=== PATIENT | female | born 1970 | race Caucasian/White ===

== ENCOUNTER → 2018-12-03 06:45 | Outpatient (CLI) | payer BC, SELFPAY ==
--- NOTE | 2018-12-03 | DI.MRI.S_ITS ---
PROCEDURE: MR LUMBAR SPINE WO CON INDICATIONS: Low back pain TECHNIQUE: Noncontrast sagittal T1 spin echo and T2 fast echo, sagittal STIR, axial T1 and T2 fast spin echo through the lumbar spine. In cases with scoliosis, additional coronal T2 fast spin echo may be performed. COMPARISON: None. FINDINGS: Image quality: Excellent. Alignment and Curvature: There is normal bony alignment. Bone Marrow: Marrow is of normal overall signal. No acute vertebral body compression fractures. Spinal Cord: Conus medullaris terminates at the L1-L2 level. Visualized cord demonstrates normal signal and size. Paraspinous Soft Tissues: No paravertebral masses. L1-L2: Normal appearance. L2-L3: Normal appearance. L3-L4: Normal appearance. L4-L5: Preserved disc height. Moderate disc desiccation. There is mild posterior disc bulge. A posterior central annular tear is present. The central canal is patent. No foraminal stenosis. L5-S1: Preserved disc height. Mild disc desiccation. There is diffuse posterior disc bulge and posterior lateral and small posterior central disc protrusion. Superimposed annular tear is present. A posterior central annular tear is present. The central canal is patent. Moderate left and mild right foraminal stenosis. IMPRESSION: 1. Degenerative disc disease at L4-L5 and L5-S1 as described. 2. No central canal stenosis. 3. Moderate left and mild right foraminal stenosis. Dictated by: Keyla Manley M.D. on 12/03/2018 at 9:55 Approved by: Keyla Manley M.D. on 12/03/2018 at 10:05
== END ==
PROVIDERS: PCP Physician Assistant; Visit Provider Psychiatry & Neurology Neurology
DX: M51.36 Other intervertebral disc degeneration, lumbar region (principal); M51.37 Other intervertebral disc degeneration, lumbosacral region; M48.07 Spinal stenosis, lumbosacral region; M54.5 Low back pain; G89.29 Other chronic pain
CPT/HCPCS: 72148

== ENCOUNTER 2019-01-21 07:30 | Outpatient (RCR) | payer BC, SELFPAY ==
--- NOTE | 2018-12-14 13:13 | PT.OIE ---
Current Diagnoses Other chronic pain (12/14/18) Low back pain (12/14/18) Past Surgical History History of bilateral salpingo-oophorectomy (BSO) (09/30/14) Status post delivery Status post laparoscopic cholecystectomy Status post laparoscopic supracervical hysterectomy Status post laparoscopy (05/13/14) Status post laparoscopy (09/18/15) Provider Visit Care Team Role Provider Type Shannon He PA-C Primary Care Provider Advanced Automobile Mechanic Supervisor Specialty: Medical Address: [address] [place] [address], [id number] Email: [email or web address] Other Providers Specialty: Address: Phone: Fax: Email: Surendra Holloway MD Attending Provider Non-Staff Specialty: Psychiatry Address: [address] [place] [address], [id number] Email: Physical Therapy Initial Evaluation PT-OP-A Visit Information Start: 12/14/18 07:26 Freq: Status: Active Protocol: Document 12/14/18 07:30 AMB (Rec: 12/14/18 08:43 AMB [email or web address]) Out-Patient Physical Therapy Visit Information Visit Information Visit Type Initial Evaluation Visit Start Time 07:30 Visit Stop Time 08:00 Total Visit Minutes 45 Visit Number 1 PT-OP-B Current Condition Start: 12/14/18 07:26 Freq: Status: Active Protocol: Document 12/14/18 07:30 AMB (Rec: 12/14/18 07:46 AMB [id number]) Current Condition History of Current Condition Onset Date September 2016 Current Complaints low back pain with numbness in the lower extremities History of Current Condition Brianna has multiple chronic conditions, but attends PT for her low back. 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 Currently she has low back pain with numbness/ tingling R >L in LEs. Standing for extended periods of time ( cooking, showering) increases pain. Touching the lipomas hurts. Heat helps. Currently she is working out in the pool 2x/week doing water walking. 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 Does have multiple children and her at home. Prior Treatments and Tests MRI of lumbar spine 12/03/18: L5-21 moderate foraminal stenosis on the left, mild on the R, mild disc dessication. No central canal stenosis. 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 Current Functional Impairments (Reported) Functional Limitations- ADL's limited to 20 minutes of standing (cooking) at a time, then requires a rest break Personal Factors Other Personal Factors That May Effect Lipedema, fibromyalgia, Dercum Therapy/Recovery 's disease, C-spine fusion C5- 6, 6-7, history of gastric bypass, multiple abdominal laparoscopies and . PT-OP-C Subjective Start: 12/14/18 07:26 Freq: Status: Active Protocol: Document 12/14/18 07:30 AMB (Rec: 12/14/18 08:43 AMB [email or web address]) Patient Questionnaires Oswestry Low Back Index Oswestry Score 58 Oswestry Impairment 40 to 59% Impaired (Score 40- 59) OP-PT Pain Assessment Location Lower Back Intensity 4 Scale Used Numeric (1 - 10) PT-OP-G Mobility & Gait Start: 12/14/18 07:26 Freq: Status: Active Protocol: Document 12/14/18 07:30 AMB (Rec: 12/14/18 12:39 AMB [email or web address]) OP Gait Assessment Comments Gait Comments Pt ambulates with good step length and speed, mildly reduced trunk rotation PT-OP-J Posture/Palpation/Skin Start: 12/14/18 07:26 Freq: Status: Active Protocol: Document 12/14/18 07:30 AMB (Rec: 12/14/18 12:43 AMB [email or web address]) Posture Evaluation Comments Posture Comments increased lumbar lordosis in standing Palpation Assessment Location One Palpation Location lumbar Palpation Details tenderness with palpation throughout body, more tenderness at SI joint than at lumbar spine, although low lumbar is tender more at transverse processes than central. PT-OP-K Range of Motion Start: 12/14/18 07:26 Freq: Status: Active Protocol: Document 12/14/18 07:30 AMB (Rec: 12/14/18 09:05 AMB [email or web address]) Lumbar Spine Range of Motion Lumbar Spine Active Degrees Testing Position Standing Flexion 30 Extension 10 Lateral Flexion Left 10 Lateral Flexion Right 20 ROM Limitations Pain PT-OP-M Strength Start: 12/14/18 07:26 Freq: Status: Active Protocol: Document 12/14/18 07:30 AMB (Rec: 12/14/18 09:05 AMB [email or web address]) Hip Strength Hip Manual Muscle Testing Right Flexion (L2) 3 Fair Abduction 3+ Fair+ Adduction 3 Fair Left Flexion (L2) 3 Fair Extension (S1) 3 Fair Abduction 3 Fair Knee Strength Knee Manual Muscle Testing Right Flexion (S2) 4 Good Extension (L3) 4 Good Left Flexion (S2) 4 Good Extension (L3) 4 Good Ankle/Foot Strength Ankle and Foot Manual Muscle Testing Right Dorsiflexion (L4) 4 Good Plantarflexion (S1) 4 Good Left Dorsiflexion (L4) 4 Good Plantarflexion (S1) 4 Good PT-OP-Q Treatments Start: 12/14/18 07:26 Freq: Status: Active Protocol: Document 12/14/18 07:30 AMB (Rec: 12/14/18 12:39 AMB [email or web address]) Therapeutic Exercises Supine Exercises 3 Supine Exercise Name bent leg fall out Reps/Minutes 2x10 2 Supine Exercise Name supine march Reps/Minutes 2x10 1 Supine Exercise Name trunk rotation PT-OP-T Assessment and Plan Start: 12/14/18 07:26 Freq: Status: Active Protocol: Document 12/14/18 07:30 AMB (Rec: 12/14/18 13:13 AMB [email or web address]) Physical Therapy Assessment Rehab Potential Rehabilitation Potential Good Evaluation Complexity Number of Personal Factors/Comorbidities 3 or More Number of Body Systems Impaired 4 or More Clinical Presentation at Evaluation Evolving Impairments Impairments Functional Activities Pain Posture ROM Sensation Soft Tissue Mobility Strength Goals Three Impairment ROM Short Term Goal (STG) Brianna will increase her active lumbar flexion to 50 degrees. STG Duration 4 weeks Two Impairment activity tolerance Short Term Goal (STG) Brianna will stand to cook for 20 minutes with 2/10 pain or less. STG Duration 4 weeks Mcfp Goal (LTG) Brianna will stand to shower for 10 minutes with 2/10 pain or less. LTG Duration 8 weeks One Impairment strength Short Term Goal (STG) Brianna will be independent with a core and LE strengthening HEP. STG Duration 4 weeks Mcfp Goal (LTG) Brianna will improve her strength so that she can perform a full squat without an increase in baseline pain. LTG Duration 8 weeks Assessment Summary Assessment Brianna attends physical therapy with multiple chronic pain conditions, but this round of PT will be for her low back pain that radiates into her legs. The pain is worst with standing, but can be bad with any extended positioning including sitting. Her core and LE strength was poor bilaterally, and she would benefit from postural retraining so that she can be more successful and less painful with chores around the home. Physical Therapy Plan Frequency and Duration Frequency of Treatment 2x/Week Duration of Treatment 8 weeks Plan of Care Start Date 12/14/18 Plan of Care End Date 02/08/19 Therapeutic Interventions Therapeutic Interventions Aquatic Therapy Home Exercise Program Manual Therapy Neuromuscular Re-education Self-Care/Home Management Therapeutic Activities Therapeutic Exercises Modalities Electric Stimulation Hot Packs Ultrasound Next Visit Focus/Plan Next Note Type Treatment Note Next Visit Plan Recheck SI joint for pain, progress core/hip stabilization exercises, posture/body mechanics training
--- NOTE | 2018-12-14 13:15 | PT.OPPOC ---
Current Diagnoses Other chronic pain (12/14/18) Low back pain (12/14/18) Provider Visit Care Team Role Provider Type Shannon He PA-C Primary Care Provider Advanced Airport Planner Specialty: Medical Address: [facility] [place], [address] Email: [email or web address] Other Providers Specialty: Address: Phone: Fax: Email: Surendra Holloway MD Attending Provider Non-Staff Specialty: Psychiatry Address: [address] [place], [address] Email: Plan Of Care PT-OP-T Assessment and Plan Start: 12/14/18 07:26 Freq: Status: Active Protocol: Document 12/14/18 07:30 AMB (Rec: 12/14/18 13:13 AMB [email or web address]) Physical Therapy Assessment Rehab Potential Rehabilitation Potential Good Evaluation Complexity Number of Personal Factors/Comorbidities 3 or More Number of Body Systems Impaired 4 or More Clinical Presentation at Evaluation Evolving Impairments Impairments Functional Activities Pain Posture ROM Sensation Soft Tissue Mobility Strength Goals Three Impairment ROM Short Term Goal (STG) Brianna will increase her active lumbar flexion to 50 degrees. STG Duration 4 weeks Two Impairment activity tolerance Short Term Goal (STG) Brianan will stand to cook for 20 minutes with 2/10 pain or less. STG Duration 4 weeks Care Transition Manager Goal (LTG) Brianna will stand to shower for 10 minutes with 2/10 pain or less. LTG Duration 8 weeks One Impairment strength Short Term Goal (STG) Brianna will be independent with a core and LE strengthening HEP. STG Duration 4 weeks Care Transition Manager Goal (LTG) Brianna will improve her strength so that she can perform a full squat without an increase in baseline pain. LTG Duration 8 weeks Assessment Summary Assessment Brianna attends physical therapy with multiple chronic pain conditions, but this round of PT will be for her low back pain that radiates into her legs. The pain is worst with standing, but can be bad with any extended positioning including sitting. Her core and LE strength was poor bilaterally, and she would benefit from postural retraining so that she can be more successful and less painful with chores around the home. Physical Therapy Plan Frequency and Duration Frequency of Treatment 2x/Week Duration of Treatment 8 weeks Plan of Care Start Date 12/14/18 Plan of Care End Date 02/08/19 Therapeutic Interventions Therapeutic Interventions Aquatic Therapy Home Exercise Program Manual Therapy Neuromuscular Re-education Self-Care/Home Management Therapeutic Activities Therapeutic Exercises Modalities Electric Stimulation Hot Packs Ultrasound Next Visit Focus/Plan Next Note Type Treatment Note Next Visit Plan Recheck SI joint for pain, progress core/hip stabilization exercises, posture/body mechanics training Plan of Care Dates Plan of Care Start Date 12/14/18 Plan of Care End Date 02/08/19 Please Sign and Return: I have reviewed this Plan of Care and certify that the skilled therapy services above are required to meet the patient?s needs. Physician Signature Date Printed Name and Credentials Clinical Instructor Signature Printed Name and Credentials
--- NOTE | 2018-12-22 13:09 | PT.OTN ---
Current Diagnoses Other chronic pain (12/22/18) Low back pain (12/22/18) Physical Therapy Treatment Note PT-OP-A Visit Information Start: 12/14/18 07:26 Freq: Status: Active Protocol: Document 12/22/18 08:15 AMB (Rec: 12/22/18 08:23 AMB [id number]) Out-Patient Physical Therapy Visit Information Visit Information Visit Type Treatment Note Visit Start Time 08:15 Visit Stop Time 09:00 Total Visit Minutes 45 Visit Number 2 PT-OP-B Current Condition Start: 12/14/18 07:26 Freq: Status: Active Protocol: Document 12/14/18 07:30 AMB (Rec: 12/14/18 07:46 AMB [id number]) Current Condition History of Current Condition Onset Date September 2016 Current Complaints low back pain with numbness in the lower extremities History of Current Condition Brianna has multiple chronic conditions, but attends PT for her low back. 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 Currently she has low back pain with numbness/ tingling R >L in LEs. Standing for extended periods of time ( cooking, showering) increases pain. Touching the lipomas hurts. Heat helps. Currently she is working out in the pool 2x/week doing water walking. 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 Does have multiple children and her at home. Prior Treatments and Tests MRI of lumbar spine 12/03/18: L5-21 moderate foraminal stenosis on the left, mild on the R, mild disc dessication. No central canal stenosis. 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 Current Functional Impairments (Reported) Functional Limitations- ADL's limited to 20 minutes of standing (cooking) at a time, then requires a rest break Personal Factors Other Personal Factors That May Effect Lipedema, fibromyalgia, Dercum Therapy/Recovery 's disease, C-spine fusion C5- 6, 6-7, history of gastric bypass, multiple abdominal laparoscopies and . PT-OP-C Subjective Start: 12/14/18 07:26 Freq: Status: Active Protocol: Document 12/22/18 08:15 AMB (Rec: 12/22/18 08:23 AMB [id number]) OP-PT Subjective Patient Comments Patient Comments Pt states she is in a flare with her neck and arms. PT-OP-G Mobility & Gait Start: 12/14/18 07:26 Freq: Status: Active Protocol: Document 12/14/18 07:30 AMB (Rec: 12/14/18 12:39 AMB [email or web address]) OP Gait Assessment Comments Gait Comments Pt ambulates with good step length and speed, mildly reduced trunk rotation PT-OP-J Posture/Palpation/Skin Start: 12/14/18 07:26 Freq: Status: Active Protocol: Document 12/14/18 07:30 AMB (Rec: 12/14/18 12:43 AMB [email or web address]) Posture Evaluation Comments Posture Comments increased lumbar lordosis in standing Palpation Assessment Location One Palpation Location lumbar Palpation Details tenderness with palpation throughout body, more tenderness at SI joint than at lumbar spine, although low lumbar is tender more at transversus processes than central. PT-OP-K Range of Motion Start: 12/14/18 07:26 Freq: Status: Active Protocol: Document 12/14/18 07:30 AMB (Rec: 12/14/18 09:05 AMB [email or web address]) Lumbar Spine Range of Motion Lumbar Spine Active Degrees Testing Position Standing Flexion 30 Extension 10 Lateral Flexion Left 10 Lateral Flexion Right 20 ROM Limitations Pain PT-OP-M Strength Start: 12/14/18 07:26 Freq: Status: Active Protocol: Document 12/14/18 07:30 AMB (Rec: 12/14/18 09:05 AMB [email or web address]) Hip Strength Hip Manual Muscle Testing Right Flexion (L2) 3 Fair Abduction 3+ Fair+ Adduction 3 Fair Left Flexion (L2) 3 Fair Extension (S1) 3 Fair Abduction 3 Fair Knee Strength Knee Manual Muscle Testing Right Flexion (S2) 4 Good Extension (L3) 4 Good Left Flexion (S2) 4 Good Extension (L3) 4 Good Ankle/Foot Strength Ankle and Foot Manual Muscle Testing Right Dorsiflexion (L4) 4 Good Plantarflexion (S1) 4 Good Left Dorsiflexion (L4) 4 Good Plantarflexion (S1) 4 Good PT-OP-Q Treatments Start: 12/14/18 07:26 Freq: Status: Active Protocol: Document 12/22/18 08:15 AMB (Rec: 12/22/18 08:38 AMB [id number]) Therapeutic Exercises Supine Exercises 5 Supine Exercise Name bridge Reps/Minutes 2x10 Comments small on 55cm ball 4 Supine Exercise Name 55cm ball knee flex/ext Reps/Minutes 2x10 3 Supine Exercise Name bent leg fall out Reps/Minutes 2x10 2 Supine Exercise Name supine march Reps/Minutes 1x10 1 Supine Exercise Name trunk rotation Reps/Minutes x6 Comments with both legs bent to 90 Sidelying Exercises 1 Sidelying Exercise Name clamshell Reps/Minutes 2x7 Standing Exercises 1 Standing Exercise Name partial squat Reps/Minutes 2x10 Comments vc form PT-OP-T Assessment and Plan Start: 12/14/18 07:26 Freq: Status: Active Protocol: Document 12/22/18 08:15 AMB (Rec: 12/22/18 13:06 AMB [email or web address]) Physical Therapy Assessment Assessment Summary Assessment Pt tolerated exercises well, not able to tolerate quadruped at this time due to arm pain. Squat form is improving but will need continued cueing. Physical Therapy Plan Next Visit Focus/Plan Next Note Type Treatment Note Next Visit Plan Progress core stabilization, posture, body mechanics.
--- NOTE | 2018-12-24 09:46 | PT.OTN ---
Current Diagnoses Other chronic pain (12/24/18) Low back pain (12/24/18) Physical Therapy Treatment Note PT-OP-A Visit Information Start: 12/14/18 07:26 Freq: Status: Active Protocol: Document 12/24/18 07:30 AMB (Rec: 12/24/18 07:45 AMB [id number]) Out-Patient Physical Therapy Visit Information Visit Information Visit Type Treatment Note Visit Start Time 07:30 Visit Stop Time 08:15 Total Visit Minutes 45 Visit Number 3 PT-OP-B Current Condition Start: 12/14/18 07:26 Freq: Status: Active Protocol: Document 12/14/18 07:30 AMB (Rec: 12/14/18 07:46 AMB [id number]) Current Condition History of Current Condition Onset Date September 2016 Current Complaints low back pain with numbness in the lower extremities History of Current Condition Brianna has multiple chronic conditions, but attends PT for her low back. 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 Currently she has low back pain with numbness/ tingling R >L in LEs. Standing for extended periods of time ( cooking, showering) increases pain. Touching the lipomas hurts. Heat helps. Currently she is working out in the pool 2x/week doing water walking. 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 Does have multiple children and her at home. Prior Treatments and Tests MRI of lumbar spine 12/03/18: L5-21 moderate foraminal stenosis on the left, mild on the R, mild disc dessication. No central canal stenosis. 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 Current Functional Impairments (Reported) Functional Limitations- ADL's limited to 20 minutes of standing (cooking) at a time, then requires a rest break Personal Factors Other Personal Factors That May Effect Lipedema, fibromyalgia, Dercum Therapy/Recovery 's disease, C-spine fusion C5- 6, 6-7, history of gastric bypass, multiple abdominal laparoscopies and . PT-OP-C Subjective Start: 12/14/18 07:26 Freq: Status: Active Protocol: Document 12/24/18 07:30 AMB (Rec: 12/24/18 07:45 AMB [email or web address]) OP-PT Subjective Patient Comments Patient Comments Pt states her back was painful Christel night. PT-OP-G Mobility & Gait Start: 12/14/18 07:26 Freq: Status: Active Protocol: Document 12/14/18 07:30 AMB (Rec: 12/14/18 12:39 AMB [email or web address]) OP Gait Assessment Comments Gait Comments Pt ambulates with good step length and speed, mildly reduced trunk rotation PT-OP-J Posture/Palpation/Skin Start: 12/14/18 07:26 Freq: Status: Active Protocol: Document 12/14/18 07:30 AMB (Rec: 12/14/18 12:43 AMB [email or web address]) Posture Evaluation Comments Posture Comments increased lumbar lordosis in standing Palpation Assessment Location One Palpation Location lumbar Palpation Details tenderness with palpation throughout body, more tenderness at SI joint than at lumbar spine, although low lumbar is tender more at transversus processes than central. PT-OP-K Range of Motion Start: 12/14/18 07:26 Freq: Status: Active Protocol: Document 12/14/18 07:30 AMB (Rec: 12/14/18 09:05 AMB [email or web address]) Lumbar Spine Range of Motion Lumbar Spine Active Degrees Testing Position Standing Flexion 30 Extension 10 Lateral Flexion Left 10 Lateral Flexion Right 20 ROM Limitations Pain PT-OP-M Strength Start: 12/14/18 07:26 Freq: Status: Active Protocol: Document 12/14/18 07:30 AMB (Rec: 12/14/18 09:05 AMB [email or web address]) Hip Strength Hip Manual Muscle Testing Right Flexion (L2) 3 Fair Abduction 3+ Fair+ Adduction 3 Fair Left Flexion (L2) 3 Fair Extension (S1) 3 Fair Abduction 3 Fair Knee Strength Knee Manual Muscle Testing Right Flexion (S2) 4 Good Extension (L3) 4 Good Left Flexion (S2) 4 Good Extension (L3) 4 Good Ankle/Foot Strength Ankle and Foot Manual Muscle Testing Right Dorsiflexion (L4) 4 Good Plantarflexion (S1) 4 Good Left Dorsiflexion (L4) 4 Good Plantarflexion (S1) 4 Good PT-OP-Q Treatments Start: 12/14/18 07:26 Freq: Status: Active Protocol: Document 12/24/18 07:30 AMB (Rec: 12/24/18 07:52 AMB [id number]) Therapeutic Exercises Supine Exercises 7 Supine Exercise Name roll in/ roll out Resistance #3 t band Reps/Minutes 2x10 5 Supine Exercise Name bridge Reps/Minutes 2x10 Comments small on 55cm ball 3 Supine Exercise Name bent leg fall out Reps/Minutes 2x10 2 Supine Exercise Name supine march Reps/Minutes 1x10 Manual Therapy Treatment Manual Traction long axis Details R Manual Techniques 1 Type MET for post rotation on the R PT-OP-T Assessment and Plan Start: 12/14/18 07:26 Freq: Status: Active Protocol: Document 12/24/18 07:30 AMB (Rec: 12/24/18 09:43 AMB [email or web address]) Physical Therapy Assessment Assessment Summary Assessment Decreased intensity of exercises for Brianna's back pain . Addressed SI. PT has a long history of leg length discrepancy. Can recheck to see if she needs heel lift. Physical Therapy Plan Next Visit Focus/Plan Next Note Type Treatment Note Next Visit Plan Progress core stabilization, posture, body mechanics.
--- NOTE | 2018-12-31 11:54 | PT.OTN ---
Current Diagnoses Other chronic pain (12/31/18) Low back pain (12/31/18) Physical Therapy Treatment Note PT-OP-A Visit Information Start: 12/14/18 07:26 Freq: Status: Active Protocol: Document 12/31/18 07:30 BS (Rec: 12/31/18 08:54 BS [email or web address]) Out-Patient Physical Therapy Visit Information Visit Information Visit Type Treatment Note Visit Start Time 07:33 Visit Stop Time 08:15 Visit Number 4 PT-OP-B Current Condition Start: 12/14/18 07:26 Freq: Status: Active Protocol: Document 12/14/18 07:30 AMB (Rec: 12/14/18 07:46 AMB [id number]) Current Condition History of Current Condition Onset Date September 2016 Current Complaints low back pain with numbness in the lower extremities History of Current Condition Brianna has multiple chronic conditions, but attends PT for her low back. 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 Currently she has low back pain with numbness/ tingling R >L in LEs. Standing for extended periods of time ( cooking, showering) increases pain. Touching the lipomas hurts. Heat helps. Currently she is working out in the pool 2x/week doing water walking. 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 Does have multiple children and her at home. Prior Treatments and Tests MRI of lumbar spine 12/03/18: L5-21 moderate foraminal stenosis on the left, mild on the R, mild disc dessication. No central canal stenosis. 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 Current Functional Impairments (Reported) Functional Limitations- ADL's limited to 20 minutes of standing (cooking) at a time, then requires a rest break Personal Factors Other Personal Factors That May Effect Lipedema, fibromyalgia, Dercum Therapy/Recovery 's disease, C-spine fusion C5- 6, 6-7, history of gastric bypass, multiple abdominal laparoscopies and . PT-OP-C Subjective Start: 12/14/18 07:26 Freq: Status: Active Protocol: Document 12/31/18 07:30 BS (Rec: 12/31/18 08:54 BS [email or web address]) OP-PT Subjective Patient Comments Patient Comments Pt reports decreased frequency of numbness in B feet. Has been able to make bath bombs and go to pool to workout. PT-OP-G Mobility & Gait Start: 12/14/18 07:26 Freq: Status: Active Protocol: Document 12/14/18 07:30 AMB (Rec: 12/14/18 12:39 AMB [email or web address]) OP Gait Assessment Comments Gait Comments Pt ambulates with good step length and speed, mildly reduced trunk rotation PT-OP-J Posture/Palpation/Skin Start: 12/14/18 07:26 Freq: Status: Active Protocol: Document 12/14/18 07:30 AMB (Rec: 12/14/18 12:43 AMB [email or web address]) Posture Evaluation Comments Posture Comments increased lumbar lordosis in standing Palpation Assessment Location One Palpation Location lumbar Palpation Details tenderness with palpation throughout body, more tenderness at SI joint than at lumbar spine, although low lumbar is tender more at transversus processes than central. PT-OP-K Range of Motion Start: 12/14/18 07:26 Freq: Status: Active Protocol: Document 12/14/18 07:30 AMB (Rec: 12/14/18 09:05 AMB [email or web address]) Lumbar Spine Range of Motion Lumbar Spine Active Degrees Testing Position Standing Flexion 30 Extension 10 Lateral Flexion Left 10 Lateral Flexion Right 20 ROM Limitations Pain PT-OP-M Strength Start: 12/14/18 07:26 Freq: Status: Active Protocol: Document 12/14/18 07:30 AMB (Rec: 12/14/18 09:05 AMB [email or web address]) Hip Strength Hip Manual Muscle Testing Right Flexion (L2) 3 Fair Abduction 3+ Fair+ Adduction 3 Fair Left Flexion (L2) 3 Fair Extension (S1) 3 Fair Abduction 3 Fair Knee Strength Knee Manual Muscle Testing Right Flexion (S2) 4 Good Extension (L3) 4 Good Left Flexion (S2) 4 Good Extension (L3) 4 Good Ankle/Foot Strength Ankle and Foot Manual Muscle Testing Right Dorsiflexion (L4) 4 Good Plantarflexion (S1) 4 Good Left Dorsiflexion (L4) 4 Good Plantarflexion (S1) 4 Good PT-OP-Q Treatments Start: 12/14/18 07:26 Freq: Status: Active Protocol: Document 12/31/18 07:30 BS (Rec: 12/31/18 08:54 BS [email or web address]) Therapeutic Exercises Supine Exercises 7 Supine Exercise Name roll in/ roll out Resistance #3 t band Reps/Minutes 2x10 5 Supine Exercise Name bridge Reps/Minutes 2x10 Comments small on 55cm ball 3 Supine Exercise Name bent leg fall out Reps/Minutes 2x10 Standing Exercises 2 Standing Exercise Name Standing Paloff press/B UE TB press out Resistance #1 band Reps/Minutes x10 each Comments standing TB pressout, 80 deg shoulder flex 1 Standing Exercise Name Mini squat Reps/Minutes x10 Comments increased LBP, 2nd set held Manual Therapy Treatment Manual Techniques 1 Type MET for post rotation on the R Comments modified in sitting PT-OP-T Assessment and Plan Start: 12/14/18 07:26 Freq: Status: Active Protocol: Document 12/31/18 07:30 BS (Rec: 12/31/18 08:54 BS [email or web address]) Physical Therapy Assessment Assessment Summary Assessment Brianna reports decreased frequency of numbness in B feet, with intermittent LBP throughout the day. Pt demo'd increased activity tolerance with core stabilization exercises. Slight leg leg discrepancy today with R post rotation, MET peformed. Physical Therapy Plan Next Visit Focus/Plan Next Note Type Treatment Note Next Visit Plan Progression of core stabilization exercises in supine and addition of standing/functional exercise with TA contraction.
--- NOTE | 2019-01-05 14:30 | PT.OTN ---
Current Diagnoses Other chronic pain (01/05/19) Low back pain (01/05/19) Physical Therapy Treatment Note PT-OP-A Visit Information Start: 12/14/18 07:26 Freq: Status: Active Protocol: Document 01/05/19 08:43 BS (Rec: 01/05/19 08:46 BS [id number]) Out-Patient Physical Therapy Visit Information Visit Information Visit Type Treatment Note Visit Start Time 08:15 Visit Stop Time 09:00 Visit Number 5 PT-OP-B Current Condition Start: 12/14/18 07:26 Freq: Status: Active Protocol: Document 12/14/18 07:30 AMB (Rec: 12/14/18 07:46 AMB [id number]) Current Condition History of Current Condition Onset Date September 2016 Current Complaints low back pain with numbness in the lower extremities History of Current Condition Brianna has multiple chronic conditions, but attends PT for her low back. 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 Currently she has low back pain with numbness/ tingling R >L in LEs. Standing for extended periods of time ( cooking, showering) increases pain. Touching the lipomas hurts. Heat helps. Currently she is working out in the pool 2x/week doing water walking. 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 Does have multiple children and her at home. Prior Treatments and Tests MRI of lumbar spine 12/03/18: L5-21 moderate foraminal stenosis on the left, mild on the R, mild disc dessication. No central canal stenosis. 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 Current Functional Impairments (Reported) Functional Limitations- ADL's limited to 20 minutes of standing (cooking) at a time, then requires a rest break Personal Factors Other Personal Factors That May Effect Lipedema, fibromyalgia, Dercum Therapy/Recovery 's disease, C-spine fusion C5- 6, 6-7, history of gastric bypass, multiple abdominal laparoscopies and . PT-OP-C Subjective Start: 12/14/18 07:26 Freq: Status: Active Protocol: Document 01/05/19 08:43 BS (Rec: 01/05/19 08:46 BS [id number]) OP-PT Subjective Patient Comments Patient Comments Pt reports that she was able to help her move furniture this weekend and vaccuum without pain. Continues to report that her aquatic exercises make her feel really good. She states she has has some R foot numbness since last session. PT-OP-G Mobility & Gait Start: 12/14/18 07:26 Freq: Status: Active Protocol: Document 12/14/18 07:30 AMB (Rec: 12/14/18 12:39 AMB [email or web address]) OP Gait Assessment Comments Gait Comments Pt ambulates with good step length and speed, mildly reduced trunk rotation PT-OP-J Posture/Palpation/Skin Start: 12/14/18 07:26 Freq: Status: Active Protocol: Document 12/14/18 07:30 AMB (Rec: 12/14/18 12:43 AMB [email or web address]) Posture Evaluation Comments Posture Comments increased lumbar lordosis in standing Palpation Assessment Location One Palpation Location lumbar Palpation Details tenderness with palpation throughout body, more tenderness at SI joint than at lumbar spine, although low lumbar is tender more at transversus processes than central. PT-OP-K Range of Motion Start: 12/14/18 07:26 Freq: Status: Active Protocol: Document 12/14/18 07:30 AMB (Rec: 12/14/18 09:05 AMB [email or web address]) Lumbar Spine Range of Motion Lumbar Spine Active Degrees Testing Position Standing Flexion 30 Extension 10 Lateral Flexion Left 10 Lateral Flexion Right 20 ROM Limitations Pain PT-OP-M Strength Start: 12/14/18 07:26 Freq: Status: Active Protocol: Document 12/14/18 07:30 AMB (Rec: 12/14/18 09:05 AMB [email or web address]) Hip Strength Hip Manual Muscle Testing Right Flexion (L2) 3 Fair Abduction 3+ Fair+ Adduction 3 Fair Left Flexion (L2) 3 Fair Extension (S1) 3 Fair Abduction 3 Fair Knee Strength Knee Manual Muscle Testing Right Flexion (S2) 4 Good Extension (L3) 4 Good Left Flexion (S2) 4 Good Extension (L3) 4 Good Ankle/Foot Strength Ankle and Foot Manual Muscle Testing Right Dorsiflexion (L4) 4 Good Plantarflexion (S1) 4 Good Left Dorsiflexion (L4) 4 Good Plantarflexion (S1) 4 Good PT-OP-Q Treatments Start: 12/14/18 07:26 Freq: Status: Active Protocol: Document 01/05/19 08:43 BS (Rec: 01/05/19 08:46 BS [id number]) Gym Equipment Therapeutic Ball 3 Exercise Details Pelvic clock: CW,CCW Ball Size/Color 65cm Body Position Sitting Reps/Duration x20 each direction 2 Exercise Details LAQs Ball Size/Color 65cm Body Position Sitting Reps/Duration 2x10 1 Exercise Details Alternating Marches + TA bracing Ball Size/Color 65 cm Body Position Sitting Reps/Duration 2x10 Comments Pt tolerated ball exercises better than in supine. Therapeutic Exercises Supine Exercises 6 Supine Exercise Name Single knee to chest Side bilateral Reps/Minutes x5 each Comments attempted double knee to chest . Increased LBP. 7 Supine Exercise Name roll in/ roll out Resistance no band today Reps/Minutes 2x10 5 Supine Exercise Name bridge Reps/Minutes 2x10 3 Supine Exercise Name bent knee fall out Reps/Minutes 2x12 1 Supine Exercise Name lower trunk rotation Reps/Minutes x15 each way Comments hooklying Standing Exercises 2 Standing Exercise Name Standing Paloff press/B UE TB press out Resistance #1 band Reps/Minutes 2x10 each Comments standing TB pressout, 80 deg shoulder flex 1 Standing Exercise Name Mini squat Reps/Minutes x10 PT-OP-T Assessment and Plan Start: 12/14/18 07:26 Freq: Status: Active Protocol: Document 01/05/19 08:43 BS (Rec: 01/05/19 10:40 BS [id number]) Physical Therapy Assessment Assessment Summary Assessment Venita continues to report inconsistent and intermittent B low back/hip/buttock pain. 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 Physical Therapy Plan Next Visit Focus/Plan Next Note Type Treatment Note Next Visit Plan Continue to progress core stabilization exercises. Pt tolerates sitting ball exercises as compared to supine position.
--- NOTE | 2019-01-07 15:56 | PT.OTN ---
Current Diagnoses Other chronic pain (01/07/19) Low back pain (01/07/19) Physical Therapy Treatment Note PT-OP-A Visit Information Start: 12/14/18 07:26 Freq: Status: Active Protocol: Document 01/07/19 07:26 BS (Rec: 01/07/19 07:30 BS [id number]) Out-Patient Physical Therapy Visit Information Visit Information Visit Type Treatment Note Visit Start Time 07:30 Visit Stop Time 08:15 Visit Number 6 PT-OP-B Current Condition Start: 12/14/18 07:26 Freq: Status: Active Protocol: Document 12/14/18 07:30 AMB (Rec: 12/14/18 07:46 AMB [id number]) Current Condition History of Current Condition Onset Date September 2016 Current Complaints low back pain with numbness in the lower extremities History of Current Condition Brianna has multiple chronic conditions, but attends PT for her low back. 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 Currently she has low back pain with numbness/ tingling R >L in LEs. Standing for extended periods of time ( cooking, showering) increases pain. Touching the lipomas hurts. Heat helps. Currently she is working out in the pool 2x/week doing water walking. 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 Does have multiple children and her at home. Prior Treatments and Tests MRI of lumbar spine 12/03/18: L5-21 moderate foraminal stenosis on the left, mild on the R, mild disc dessication. No central canal stenosis. 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 Current Functional Impairments (Reported) Functional Limitations- ADL's limited to 20 minutes of standing (cooking) at a time, then requires a rest break Personal Factors Other Personal Factors That May Effect Lipedema, fibromyalgia, Dercum Therapy/Recovery 's disease, C-spine fusion C5- 6, 6-7, history of gastric bypass, multiple abdominal laparoscopies and . PT-OP-C Subjective Start: 12/14/18 07:26 Freq: Status: Active Protocol: Document 01/07/19 07:26 BS (Rec: 01/07/19 07:30 BS [id number]) OP-PT Subjective Patient Comments Patient Comments Pt states that she is in a lot of pain today, 6/10. She thinks stress has contributed to this flare up. PT-OP-G Mobility & Gait Start: 12/14/18 07:26 Freq: Status: Active Protocol: Document 12/14/18 07:30 AMB (Rec: 12/14/18 12:39 AMB [email or web address]) OP Gait Assessment Comments Gait Comments Pt ambulates with good step length and speed, mildly reduced trunk rotation PT-OP-J Posture/Palpation/Skin Start: 12/14/18 07:26 Freq: Status: Active Protocol: Document 12/14/18 07:30 AMB (Rec: 12/14/18 12:43 AMB [email or web address]) Posture Evaluation Comments Posture Comments increased lumbar lordosis in standing Palpation Assessment Location One Palpation Location lumbar Palpation Details tenderness with palpation throughout body, more tenderness at SI joint than at lumbar spine, although low lumbar is tender more at transversus processes than central. PT-OP-K Range of Motion Start: 12/14/18 07:26 Freq: Status: Active Protocol: Document 12/14/18 07:30 AMB (Rec: 12/14/18 09:05 AMB [email or web address]) Lumbar Spine Range of Motion Lumbar Spine Active Degrees Testing Position Standing Flexion 30 Extension 10 Lateral Flexion Left 10 Lateral Flexion Right 20 ROM Limitations Pain PT-OP-M Strength Start: 12/14/18 07:26 Freq: Status: Active Protocol: Document 12/14/18 07:30 AMB (Rec: 12/14/18 09:05 AMB [email or web address]) Hip Strength Hip Manual Muscle Testing Right Flexion (L2) 3 Fair Abduction 3+ Fair+ Adduction 3 Fair Left Flexion (L2) 3 Fair Extension (S1) 3 Fair Abduction 3 Fair Knee Strength Knee Manual Muscle Testing Right Flexion (S2) 4 Good Extension (L3) 4 Good Left Flexion (S2) 4 Good Extension (L3) 4 Good Ankle/Foot Strength Ankle and Foot Manual Muscle Testing Right Dorsiflexion (L4) 4 Good Plantarflexion (S1) 4 Good Left Dorsiflexion (L4) 4 Good Plantarflexion (S1) 4 Good PT-OP-Q Treatments Start: 12/14/18 07:26 Freq: Status: Active Protocol: Document 01/07/19 07:26 BS (Rec: 01/07/19 07:30 BS [id number]) Gym Equipment Therapeutic Ball 4 Exercise Details Roll in/out Ball Size/Color 65 cm Body Position Sitting Reps/Duration x20 each Comments foam roller for add squeeze. # 1 band for abduction 3 Exercise Details pelvic clock: CW, CCW Ball Size/Color 65cm ball Body Position Sitting Reps/Duration 2 min each 2 Exercise Details LAQs Ball Size/Color 65cm Body Position Sitting Reps/Duration 2x10 1 Exercise Details Alternating Marches + TA bracing Ball Size/Color 65 cm Body Position Sitting Reps/Duration 2x10 Comments Pt tolerated ball exercises better than in supine. Manual Therapy Treatment Soft Tissue Mobilization 1 Body Location L glut med/min Mobilization Type Myofascial Release Rolling Sustained Pressure Intensity/Depth Moderate Body Position R sidelying Comments with foam roller Manual Techniques 1 Type MET for post rotation on the R Comments shotgun technique, 3x5 hold PT-OP-T Assessment and Plan Start: 12/14/18 07:26 Freq: Status: Active Protocol: Document 01/07/19 07:26 BS (Rec: 01/07/19 07:30 BS [id number]) Physical Therapy Assessment Assessment Summary Assessment PT session focused on light lumbar mobility and core stabilization due to recent flare up with increased stress levels. Discussed importance of stress management with pt as she credits stress for her most recent exacerbation. Physical Therapy Plan Next Visit Focus/Plan Next Note Type Treatment Note Next Visit Plan Monitor exacerbation of LBP nad L buttock. Pt tolerates sitting [place]in[place] ball core stabilization best. Progress lumbar stabilization exercises as able.
--- NOTE | 2019-01-11 11:45 | PT.OTN ---
Current Diagnoses Other chronic pain (01/11/19) Low back pain (01/11/19) Physical Therapy Treatment Note PT-OP-A Visit Information Start: 12/14/18 07:26 Freq: Status: Active Protocol: Document 01/11/19 08:00 BS (Rec: 01/11/19 07:44 BS [id number]) Out-Patient Physical Therapy Visit Information Visit Information Visit Type Treatment Note Visit Start Time 07:35 Visit Stop Time 08:13 Visit Number 7 PT-OP-B Current Condition Start: 12/14/18 07:26 Freq: Status: Active Protocol: Document 12/14/18 07:30 AMB (Rec: 12/14/18 07:46 AMB [id number]) Current Condition History of Current Condition Onset Date September 2016 Current Complaints low back pain with numbness in the lower extremities History of Current Condition Brianna has multiple chronic conditions, but attends PT for her low back. 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 Currently she has low back pain with numbness/ tingling R >L in LEs. Standing for extended periods of time ( cooking, showering) increases pain. Touching the lipomas hurts. Heat helps. Currently she is working out in the pool 2x/week doing water walking. 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 Does have multiple children and her at home. Prior Treatments and Tests MRI of lumbar spine 12/03/18: L5-21 moderate foraminal stenosis on the left, mild on the R, mild disc dessication. No central canal stenosis. 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 Current Functional Impairments (Reported) Functional Limitations- ADL's limited to 20 minutes of standing (cooking) at a time, then requires a rest break Personal Factors Other Personal Factors That May Effect Lipedema, fibromyalgia, Dercum Therapy/Recovery 's disease, C-spine fusion C5- 6, 6-7, history of gastric bypass, multiple abdominal laparoscopies and . PT-OP-C Subjective Start: 12/14/18 07:26 Freq: Status: Active Protocol: Document 01/11/19 08:00 BS (Rec: 01/11/19 07:58 BS [id number]) OP-PT Subjective Patient Comments Patient Comments Pt states that she is feeling better, rested more yesterday. She reports that she is able to stand for longer periods of time. PT-OP-G Mobility & Gait Start: 12/14/18 07:26 Freq: Status: Active Protocol: Document 12/14/18 07:30 AMB (Rec: 12/14/18 12:39 AMB [email or web address]) OP Gait Assessment Comments Gait Comments Pt ambulates with good step length and speed, mildly reduced trunk rotation PT-OP-J Posture/Palpation/Skin Start: 12/14/18 07:26 Freq: Status: Active Protocol: Document 12/14/18 07:30 AMB (Rec: 12/14/18 12:43 AMB [email or web address]) Posture Evaluation Comments Posture Comments increased lumbar lordosis in standing Palpation Assessment Location One Palpation Location lumbar Palpation Details tenderness with palpation throughout body, more tenderness at SI joint than at lumbar spine, although low lumbar is tender more at transversus processes than central. PT-OP-K Range of Motion Start: 12/14/18 07:26 Freq: Status: Active Protocol: Document 12/14/18 07:30 AMB (Rec: 12/14/18 09:05 AMB [email or web address]) Lumbar Spine Range of Motion Lumbar Spine Active Degrees Testing Position Standing Flexion 30 Extension 10 Lateral Flexion Left 10 Lateral Flexion Right 20 ROM Limitations Pain PT-OP-M Strength Start: 12/14/18 07:26 Freq: Status: Active Protocol: Document 12/14/18 07:30 AMB (Rec: 12/14/18 09:05 AMB [email or web address]) Hip Strength Hip Manual Muscle Testing Right Flexion (L2) 3 Fair Abduction 3+ Fair+ Adduction 3 Fair Left Flexion (L2) 3 Fair Extension (S1) 3 Fair Abduction 3 Fair Knee Strength Knee Manual Muscle Testing Right Flexion (S2) 4 Good Extension (L3) 4 Good Left Flexion (S2) 4 Good Extension (L3) 4 Good Ankle/Foot Strength Ankle and Foot Manual Muscle Testing Right Dorsiflexion (L4) 4 Good Plantarflexion (S1) 4 Good Left Dorsiflexion (L4) 4 Good Plantarflexion (S1) 4 Good PT-OP-Q Treatments Start: 12/14/18 07:26 Freq: Status: Active Protocol: Document 01/11/19 08:00 BS (Rec: 01/11/19 07:44 BS [id number]) Gym Equipment Therapeutic Ball 4 Exercise Details Roll in/out Ball Size/Color 65 cm Body Position Sitting Reps/Duration x20 each Comments foam roller for add squeeze. # 1 band for abduction 3 Exercise Details pelvic clock: CW, CCW Ball Size/Color 65cm ball Body Position Sitting Reps/Duration 2 min each 2 Exercise Details LAQs Ball Size/Color 65cm Body Position Sitting Reps/Duration 2x10 1 Exercise Details Alternating Marches + TA bracing Ball Size/Color 65 cm Body Position Sitting Reps/Duration 2x10 Comments Pt tolerated ball exercises better than in supine. Therapeutic Exercises Supine Exercises 5 Supine Exercise Name bridge Resistance hooklying Reps/Minutes 2x10 Comments 1 set with 65 cm ball Standing Exercises 2 Standing Exercise Name Standing Paloff press/B UE TB press out Resistance #1 band Reps/Minutes 2x10 each Comments standing TB pressout, 80 deg shoulder flex 1 Standing Exercise Name Mini squat Reps/Minutes x10 Comments B UE support on bars PT-OP-T Assessment and Plan Start: 12/14/18 07:26 Freq: Status: Active Protocol: Document 01/11/19 08:00 BS (Rec: 01/11/19 07:44 BS [id number]) Physical Therapy Assessment Assessment Summary Assessment Pt tolerated core stabilization exercises on [place] ball today and reports she feels like she is making progress in regards to reducing LBP. Assessed trunk AROM, all without increase LBP and WFL with the exception of R rotation. Physical Therapy Plan Next Visit Focus/Plan Next Note Type Treatment Note Next Visit Plan Continue core stabilization exercises and progress toward pt independence with HEP. Incorporate exercises into pool.
--- NOTE | 2019-01-19 12:52 | PT.OTN ---
Current Diagnoses Other chronic pain (01/19/19) Low back pain (01/19/19) Physical Therapy Treatment Note PT-OP-A Visit Information Start: 12/14/18 07:26 Freq: Status: Active Protocol: Document 01/19/19 07:34 BS (Rec: 01/19/19 07:41 BS [id number]) Out-Patient Physical Therapy Visit Information Visit Information Visit Type Treatment Note Visit Start Time 07:30 Visit Stop Time 08:15 Total Visit Minutes 45 Visit Number 8 PT-OP-B Current Condition Start: 12/14/18 07:26 Freq: Status: Active Protocol: Document 12/14/18 07:30 AMB (Rec: 12/14/18 07:46 AMB [id number]) Current Condition History of Current Condition Onset Date September 2016 Current Complaints low back pain with numbness in the lower extremities History of Current Condition Brianna has multiple chronic conditions, but attends PT for her low back. 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 Currently she has low back pain with numbness/ tingling R >L in LEs. Standing for extended periods of time ( cooking, showering) increases pain. Touching the lipomas hurts. Heat helps. Currently she is working out in the pool 2x/week doing water walking. 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 Does have multiple children and her at home. Prior Treatments and Tests MRI of lumbar spine 12/03/18: L5-21 moderate foraminal stenosis on the left, mild on the R, mild disc dessication. No central canal stenosis. 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 Current Functional Impairments (Reported) Functional Limitations- ADL's limited to 20 minutes of standing (cooking) at a time, then requires a rest break Personal Factors Other Personal Factors That May Effect Lipedema, fibromyalgia, Dercum Therapy/Recovery 's disease, C-spine fusion C5- 6, 6-7, history of gastric bypass, multiple abdominal laparoscopies and . PT-OP-C Subjective Start: 12/14/18 07:26 Freq: Status: Active Protocol: Document 01/19/19 07:34 BS (Rec: 01/19/19 07:41 BS [id number]) OP-PT Subjective Patient Comments Patient Comments Pt states that her back feels good today but that her neck and shoulders are sore after housework and attempting to make jewelry with jordan. PT-OP-G Mobility & Gait Start: 12/14/18 07:26 Freq: Status: Active Protocol: Document 12/14/18 07:30 AMB (Rec: 12/14/18 12:39 AMB [email or web address]) OP Gait Assessment Comments Gait Comments Pt ambulates with good step length and speed, mildly reduced trunk rotation PT-OP-J Posture/Palpation/Skin Start: 12/14/18 07:26 Freq: Status: Active Protocol: Document 12/14/18 07:30 AMB (Rec: 12/14/18 12:43 AMB [email or web address]) Posture Evaluation Comments Posture Comments increased lumbar lordosis in standing Palpation Assessment Location One Palpation Location lumbar Palpation Details tenderness with palpation throughout body, more tenderness at SI joint than at lumbar spine, although low lumbar is tender more at transversus processes than central. PT-OP-K Range of Motion Start: 12/14/18 07:26 Freq: Status: Active Protocol: Document 12/14/18 07:30 AMB (Rec: 12/14/18 09:05 AMB [email or web address]) Lumbar Spine Range of Motion Lumbar Spine Active Degrees Testing Position Standing Flexion 30 Extension 10 Lateral Flexion Left 10 Lateral Flexion Right 20 ROM Limitations Pain PT-OP-M Strength Start: 12/14/18 07:26 Freq: Status: Active Protocol: Document 12/14/18 07:30 AMB (Rec: 12/14/18 09:05 AMB [email or web address]) Hip Strength Hip Manual Muscle Testing Right Flexion (L2) 3 Fair Abduction 3+ Fair+ Adduction 3 Fair Left Flexion (L2) 3 Fair Extension (S1) 3 Fair Abduction 3 Fair Knee Strength Knee Manual Muscle Testing Right Flexion (S2) 4 Good Extension (L3) 4 Good Left Flexion (S2) 4 Good Extension (L3) 4 Good Ankle/Foot Strength Ankle and Foot Manual Muscle Testing Right Dorsiflexion (L4) 4 Good Plantarflexion (S1) 4 Good Left Dorsiflexion (L4) 4 Good Plantarflexion (S1) 4 Good PT-OP-Q Treatments Start: 12/14/18 07:26 Freq: Status: Active Protocol: Document 01/19/19 07:34 BS (Rec: 01/19/19 07:41 BS [id number]) Gym Equipment Therapeutic Ball 4 Exercise Details Roll in/out Ball Size/Color 65 cm Body Position Sitting Reps/Duration x20 each Comments foam roller for add squeeze. # 4 band for abduction 3 Exercise Details pelvic clock: CW, CCW Ball Size/Color 65cm ball Body Position Sitting Reps/Duration 3 min each 2 Exercise Details LAQs Ball Size/Color 65cm Body Position Sitting Reps/Duration x20 each 1 Exercise Details Alternating Marches + TA bracing Ball Size/Color 65 cm Body Position Sitting Reps/Duration x20 each LE Therapeutic Exercises Supine Exercises 5 Supine Exercise Name bridge Resistance hooklying Reps/Minutes x20 4 Supine Exercise Name TA brace + scissor kicks Side bilateral Reps/Minutes x10 Standing Exercises 5 Standing Exercise Name Hip abduction Side bilateral Reps/Minutes 2x10 each Comments VCs TA contraction 4 Standing Exercise Name alternating arms Reps/Minutes x15 each Comments VCs TA contraction 3 Standing Exercise Name D2 extension with TA brace Resistance #1 tband Reps/Minutes x10 each side Comments VCs TA contraction 2 Standing Exercise Name Standing Paloff press/B UE TB press out Resistance #1 band Reps/Minutes 2x10 each Comments standing TB pressout, 80 deg shoulder flex PT-OP-T Assessment and Plan Start: 12/14/18 07:26 Freq: Status: Active Protocol: Document 01/19/19 07:34 BS (Rec: 01/19/19 11:48 BS [email or web address]) Physical Therapy Assessment Assessment Summary Assessment Pt tolerated core stabilization exercises today without LBP. No manual therapy performed. Physical Therapy Plan Next Visit Focus/Plan Next Note Type Discharge Summary Next Visit Plan Discharge pt with ideas for exercises to continue in the pool.
--- NOTE | 2019-01-21 09:41 | PT.OTN ---
Current Diagnoses Other chronic pain (01/21/19) Low back pain (01/21/19) Physical Therapy Treatment Note PT-OP-A Visit Information Start: 12/14/18 07:26 Freq: Status: Active Protocol: Document 01/21/19 08:15 BS (Rec: 01/21/19 09:26 BS [email or web address]) Out-Patient Physical Therapy Visit Information Visit Information Visit Type Discharge Summary Visit Start Time 07:35 Visit Stop Time 08:15 Total Visit Minutes 40 Visit Number 9 PT-OP-B Current Condition Start: 12/14/18 07:26 Freq: Status: Active Protocol: Document 12/14/18 07:30 AMB (Rec: 12/14/18 07:46 AMB [id number]) Current Condition History of Current Condition Onset Date September 2016 Current Complaints low back pain with numbness in the lower extremities History of Current Condition Brianna has multiple chronic conditions, but attends PT for her low back. 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 Currently she has low back pain with numbness/ tingling R >L in LEs. Standing for extended periods of time ( cooking, showering) increases pain. Touching the lipomas hurts. Heat helps. Currently she is working out in the pool 2x/week doing water walking. 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 Does have multiple children and her at home. Prior Treatments and Tests MRI of lumbar spine 12/03/18: L5-21 moderate foraminal stenosis on the left, mild on the R, mild disc dessication. No central canal stenosis. 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 Current Functional Impairments (Reported) Functional Limitations- ADL's limited to 20 minutes of standing (cooking) at a time, then requires a rest break Personal Factors Other Personal Factors That May Effect Lipedema, fibromyalgia, Dercum Therapy/Recovery 's disease, C-spine fusion C5- 6, 6-7, history of gastric bypass, multiple abdominal laparoscopies and . PT-OP-C Subjective Start: 12/14/18 07:26 Freq: Status: Active Protocol: Document 01/21/19 08:15 BS (Rec: 01/21/19 07:40 BS [id number]) OP-PT Subjective Patient Comments Patient Comments Pt states that her back hasn't really bothered her as much and that she sees improvement with performing daily activities and housework with minimal low back pain. Patient Reported Progress Improving Patient Questionnaires Oswestry Low Back Index Oswestry Score 32 Oswestry Impairment 20 to 39% Impaired (Score 20- 39) PT-OP-G Mobility & Gait Start: 12/14/18 07:26 Freq: Status: Active Protocol: Document 12/14/18 07:30 AMB (Rec: 12/14/18 12:39 AMB [email or web address]) OP Gait Assessment Comments Gait Comments Pt ambulates with good step length and speed, mildly reduced trunk rotation PT-OP-J Posture/Palpation/Skin Start: 12/14/18 07:26 Freq: Status: Active Protocol: Document 12/14/18 07:30 AMB (Rec: 12/14/18 12:43 AMB [email or web address]) Posture Evaluation Comments Posture Comments increased lumbar lordosis in standing Palpation Assessment Location One Palpation Location lumbar Palpation Details tenderness with palpation throughout body, more tenderness at SI joint than at lumbar spine, although low lumbar is tender more at transversus processes than central. PT-OP-K Range of Motion Start: 12/14/18 07:26 Freq: Status: Active Protocol: Document 01/21/19 08:15 BS (Rec: 01/21/19 09:31 BS [email or web address]) Lumbar Spine Range of Motion Lumbar Spine Active Degrees Flexion 70 Comments Pain with end range extension. Gross ROM extension, bilateral SB and Rot WNL and pain free. PT-OP-M Strength Start: 12/14/18 07:26 Freq: Status: Active Protocol: Document 01/21/19 08:15 BS (Rec: 01/21/19 09:31 BS [email or web address]) Hip Strength Hip Manual Muscle Testing Right Flexion (L2) 5 Normal Extension (S1) 4 Good Abduction 4 Good External Rotation 5 Normal Internal Rotation 5 Normal Left Flexion (L2) 5 Normal Extension (S1) 4 Good Abduction 4 Good External Rotation 5 Normal Internal Rotation 5 Normal Knee Strength Knee Manual Muscle Testing Right Flexion (S2) 5 Normal Extension (L3) 5 Normal Left Flexion (S2) 5 Normal Extension (L3) 5 Normal Ankle/Foot Strength Ankle and Foot Manual Muscle Testing Right Dorsiflexion (L4) 5 Normal Left Dorsiflexion (L4) 5 Normal PT-OP-Q Treatments Start: 12/14/18 07:26 Freq: Status: Active Protocol: Document 01/21/19 08:15 BS (Rec: 01/21/19 07:44 BS [id number]) Gym Equipment Therapeutic Ball 3 Exercise Details pelvic clock: CW, CCW Ball Size/Color 65cm ball Body Position Sitting Reps/Duration 3 min each 2 Exercise Details LAQs Ball Size/Color 65cm Body Position Sitting Reps/Duration x20 each 1 Exercise Details Alternating Marches + TA bracing Ball Size/Color 65 cm Body Position Sitting Reps/Duration x20 each LE Therapeutic Exercises Supine Exercises 5 Supine Exercise Name Bridges Resistance hooklying Reps/Minutes x20 Standing Exercises 6 Standing Exercise Name Calf Raises Side bilateral Reps/Minutes x15 5 Standing Exercise Name Hip abduction Side bilateral Reps/Minutes x12 each Comments VCs TA contraction 1 Standing Exercise Name Mini squat Reps/Minutes x10 Comments B UE support on bars PT-OP-T Assessment and Plan Start: 12/14/18 07:26 Freq: Status: Active Protocol: Document 01/21/19 08:15 BS (Rec: 01/21/19 07:40 BS [id number]) Physical Therapy Assessment Goals Three Impairment ROM Short Term Goal (STG) Brianna will increase her active lumbar flexion to 50 degrees. MET, 70 deg without LBP. STG Duration 4 weeks Two Impairment activity tolerance Short Term Goal (STG) Brianna will stand to cook for 20 minutes with 2/10 pain or less. PARTIALLY MET, occasionally unable to cook for >20 minutes depending on prior activity level. STG Duration 4 weeks [employer] Sh[employer] Technician Goal (LTG) Brianna will stand to shower for 10 minutes with 2/10 pain or less. PARTIALLY MET, only with trunk extension to wash hair. LTG Duration 8 weeks One Impairment strength Short Term Goal (STG) rBianna will be independent with a core and LE strengthening HEP. MET STG Duration 4 weeks Retirement Goal (LTG) Brianna will improve her strength so that she can perform a full squat without an increase in baseline pain. MET LTG Duration 8 weeks Assessment Summary Assessment Venita has made improvements in core stabilization strength with increased tolerance and progressions during therapy. Objectively, she demo's improvements in B LE muscle strength, pain-free trunk AROM with the exception of end range extension, and an improved Oswestry score as compared to IE findings. Subjectively, she reports ability to perform most daily activities with minimal back pain and she has renewed her pool membership to continue with provided core stabilization and LE strengthening. Pt has met most goals for PT and will be discharged at this time.
== END 2019-04-08 13:18 | disposition home or self-care (01) ==
LOC: PHYS 07:30
PROVIDERS: PCP Physician Assistant; Visit Provider Psychiatry & Neurology Neurology
DX: M54.5 Low back pain (principal); G89.29 Other chronic pain
CPT/HCPCS: 97110; 97140; 97162

== ENCOUNTER → 2019-09-23 07:54 | Outpatient (CLI) | payer BC, SELFPAY ==
--- NOTE | 2019-09-23 07:58 | DI.RAD.S_ITS ---
PROCEDURE: XR ABDOMEN MIN 2V INDICATIONS: Constipation TECHNIQUE: 2 views of the abdomen were acquired. COMPARISON: [facility], , ABDOMEN ACUTE SERIES, 10/24/2015, 9:21. FINDINGS: Surgical changes and devices: Cholecystectomy clips are noted. Bowel: No pneumoperitoneum. The bowel gas pattern is nonspecific. There is paucity of small bowel gas. Soft tissues: No masses; visualized solid organ contours appear normal in size. No suspicious abdominal calcifications. Bones: No suspicious bony abnormalities. IMPRESSION: Nonspecific bowel gas pattern. Dictated by: Keyla Manley M.D. on 09/23/2019 at 9:11 Approved by: Keyla Manley M.D. on 09/23/2019 at 9:12
[2019-09-23 08:37] LABS: Alanine Aminotransferase 45 IU/L (<35); Albumin 4.3 g/dL (3.5-5.0); Albumin Globulin Ratio 1.7 (1.0-2.8); Alkaline Phosphatase 170 U/L (38-126); Aspartate Aminotransferase 33 IU/L (14-36); BUN Creatinine Ratio 18.8 (6-22); Bilirubin Total 0.4 mg/dL (0.2-1.3); Blood Urea Nitrogen 15 mg/dL (7-17); Calcium 9.7 mg/dL (8.4-10.2); Carbon Dioxide 27 mmol/L (22-32); Chloride 103 mmol/L (98-107); Cholesterol 232 mg/dL (140-199); Estimated Glomerular Filt Rate > 60.0 mL/min (>60); Globulin 2.5 g/dL (1.7-4.1); Glucose 92 mg/dL (70-100); HDL Cholesterol 69 mg/dL (40-60); HEMOLYSIS < 15 (0-50); LDL Cholesterol Calculated 134 mg/dL (<100); Potassium 4.1 mmol/L (3.4-5.1); Sodium 139 mmol/L (137-145); Total Protein 6.8 g/dL (6.3-8.2); Triglycerides 145 mg/dL (35-150)
[2019-09-23 09:06] LABS: Thyroid Stimulating Hormone 3.67 uIU/mL (0.47-4.68)
== END ==
PROVIDERS: PCP Physician Assistant; Visit Provider Physician Assistant
DX: Z13.220 Encounter for screening for lipoid disorders (principal); Z13.6 Encounter for screening for cardiovascular disorders; K59.00 Constipation, unspecified; R14.0 Abdominal distension (gaseous)
CPT/HCPCS: 36415; 74019; 80053; 80061; 84443

== ENCOUNTER → 2019-09-24 07:55 | Outpatient (CLI) | payer BC, SELFPAY ==
[2019-09-24 08:49] LABS: Add Manual Diff / Slide Review NO; Basophils Absolute Auto 0 /uL (0-100); Basophils Percent Auto 0.7 % (0-2); Eosinophils Absolute Auto 300 /uL (0-450); Eosinophils Percent Auto 6.7 % (2-4); Hematocrit 40.8 % (36-46); Hemoglobin 14.1 g/dL (12.0-16.0); Lymphocytes Absolute Auto 1200 /uL (1100-4500); Lymphocytes Percent Auto 27.6 % (25-40); Mean Corpuscular HGB Conc 34.5 % (30-36); Mean Corpuscular Volume 92.7 fL (80-100); Monocytes Absolute Auto 300 /uL (0-900); Monocytes Percent Auto 8.1 % (3-14); Neutrophils Absolute Auto 2400 /uL (1500-7000); Neutrophils Percent Auto 56.9 % (50-75); Platelet Count 260 X10^3/uL (150-400); Red Blood Cell Count 4.41 X10^6/uL (4.0-5.2); White Blood Cell Count 4.2 X10^3/uL (4.5-11.0)
[2019-09-24 08:58] LABS: INR 0.9 (0.9-1.3); Prothrombin Time 9.9 SECONDS (10.1-12.7)
[2019-09-24 09:00] LABS: PTT Partial Thromboplastin Tim 36 SECONDS (26.4-36.2)
[2019-09-24 09:08] LABS: Gamma Glutamyl Transpeptidase 142 U/L (12-43); Lactate Dehydrogenase 523 U/L (313-618)
[2019-09-24 09:33] LABS: HEMOLYSIS < 15 (0-50); Iron 94 ug/dL (37-170)
[2019-09-24 09:44] LABS: Percent Iron Saturation 28 % (15-50); Total Iron Binding Capacity 341 ug/dL (265-497); Transferrin 283 mg/dL (206-381)
[2019-09-24 10:06] LABS: Hepatitis B Surface Antigen NEGATIVE s/c (NEGATIVE)
[2019-09-24 10:24] LABS: Hep C Virus Ab w/Reflex Quant NEGATIVE s/c (NEGATIVE)
[2019-09-28 14:39] LABS: Hepatitis B Core Antibody Nonreactive (Nonreactive)
== END ==
PROVIDERS: PCP Physician Assistant; Visit Provider Physician Assistant
DX: Z11.59 Encounter for screening for other viral diseases (principal); E88.2 Lipomatosis, not elsewhere classified; R74.8 Abnormal levels of other serum enzymes
CPT/HCPCS: 36415; 82977; 83540; 83550; 83615; 85025; 85610; 85730; 86704; 86803; 87340

== ENCOUNTER → 2019-09-27 13:02 | Outpatient (CLI) | payer BC, SELFPAY ==
--- NOTE | 2019-09-27 13:07 | DI.US.S_ITS ---
PROCEDURE: US ABDOMEN COMPLETE INDICATIONS: ELEVATED ALK PHOS; ABD DISCOMFORT; BLOATING TECHNIQUE: Real-time scanning was performed of the abdominal and retroperitoneal organs, with image documentation. COMPARISON: [facility], CT, ABDOMEN/PELVIS WITH CONTRAST, 01/26/2016, 15:17. [facility], MR, MR LUMBAR SPINE WO CON, 12/03/2018, 7:01. FINDINGS: Liver: Liver is moderately enlarged at 20 cm in craniocaudad size and homogeneous in echotexture, diffusely hyperechoic consistent with fatty infiltration. Gallbladder: Previously resected Biliary ducts: Intrahepatic bile ducts are non-dilated. Extrahepatic bile duct caliber measures 7.2 mm. Normal is 6-7 mm or less in diameter, or 10 mm or less post-cholecystectomy. Pancreas: Visualized portions of the pancreas are sonographically normal. Spleen: Spleen is normal in size and homogeneous in echotexture. Kidneys: Kidneys are normal in size and echotexture. Right kidney measures 11.2 cm long; left kidney measures 11.3 cm long. No hydronephrosis or nephrolithiasis. No solid masses. The left kidney contains a hyperechoic focus without shadowing, mid-kidney level, within the cortex most consistent with a 5 x 6 x 9 mm angiomyolipoma. Aorta: Visualized aorta is normal in caliber at less than 3 cm. Iliacs: Proximal common iliac arteries are normal in caliber at less than 2.5 cm. IVC: Intrahepatic inferior vena cava is patent. Miscellaneous: No free abdominal fluid. IMPRESSION: Hepatomegaly and prominently fatty infiltrated liver parenchyma. Please correlate for underlying etiology of hepatic steatosis. 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 Dictated by: Jeffrey Maza M.D. on 09/27/2019 at 14:56 Approved by: Jeffrey Maza M.D. on 09/27/2019 at 15:26
== END ==
PROVIDERS: PCP Physician Assistant; Visit Provider Physician Assistant
DX: R74.8 Abnormal levels of other serum enzymes (principal); K76.0 Fatty (change of) liver, not elsewhere classified; R10.9 Unspecified abdominal pain; R14.0 Abdominal distension (gaseous); Z90.49 Acquired absence of other specified parts of digestive tract
CPT/HCPCS: 76700

== ENCOUNTER → 2020-05-20 10:49 | Outpatient (CLI) | payer MEDICARE, BC, SELFPAY ==
[2020-05-20 12:39] LABS: Alanine Aminotransferase 25 IU/L (<35); Albumin 4.6 g/dL (3.5-5.0); Albumin Globulin Ratio 1.5 (1.0-2.8); Alkaline Phosphatase 83 U/L (38-126); Aspartate Aminotransferase 29 IU/L (14-36); Bilirubin Total 0.5 mg/dL (0.2-1.3); Bilirubin Unconjugated 0.3 mg/dL (0.0-1.1); HEMOLYSIS < 15 (0-50); Total Protein 7.6 g/dL (6.3-8.2)
== END ==
PROVIDERS: PCP Physician Assistant; Referring Provider Internal Medicine; Visit Provider Internal Medicine
DX: R94.5 Abnormal results of liver function studies (principal)
CPT/HCPCS: 36415; 80076

== ENCOUNTER → 2020-09-02 10:58 | Outpatient (CLI) | payer MEDICARE, BC, SELFPAY ==
[2020-09-02 11:28] LABS: COVID19 -Nasal RAPID Negative (Negative)
== END ==
PROVIDERS: PCP Physician Assistant; Visit Provider Physician Assistant
DX: Z11.59 Encounter for screening for other viral diseases (principal)
CPT/HCPCS: 87635

== ENCOUNTER → 2020-09-21 08:17 | Outpatient (CLI) | payer MEDICARE, BC, SELFPAY ==
--- NOTE | 2020-09-21 | DI.MG.S_ITS ---
BILATERAL DIGITAL SCREENING MAMMOGRAM 3D/2D WITH CAD: 09/21/2020 CLINICAL: Routine screening. Comparison is made to exam dated: 06/08/2012 mammogram - [facility]. There are scattered fibroglandular elements in both breasts. Current study was also evaluated with a Computer Aided Detection (CAD) system. No significant masses, calcifications, or other findings are seen in either breast. There has been no significant interval change. IMPRESSION: NEGATIVE There is no mammographic evidence of malignancy. A 1 year screening mammogram is recommended. This exam was interpreted at Station ID: [id number]. NOTE: For mammograms, a report in lay terms will be sent to the patient. Approximately 15% of breast malignancies will not be visualized mammographically. In the management of a palpable breast mass, a negative mammogram must not discourage biopsy of a clinically suspicious lesion. Electronically Signed By: Enzo johns/joyce:09/21/2020 08:46:46 letter sent: Normal Exam ACR BI-RADS Category 1: Negative [id number]
== END ==
PROVIDERS: PCP Physician Assistant; Referring Provider Physician Assistant; Visit Provider Physician Assistant
DX: Z12.31 Encounter for screening mammogram for malignant neoplasm of breast (principal)
CPT/HCPCS: 77063; 77067

== ENCOUNTER → 2021-02-22 10:04 | Outpatient (CLI) | payer MEDICARE, BC, SELFPAY ==
[2021-02-22 11:27] LABS: Alanine Aminotransferase 21 IU/L (<35); Albumin 4.4 g/dL (3.5-5.0); Albumin Globulin Ratio 1.6 (1.0-2.8); Alkaline Phosphatase 68 U/L (38-126); Aspartate Aminotransferase 23 IU/L (14-36); Bilirubin Total 0.4 mg/dL (0.2-1.3); Blood Urea Nitrogen 10 mg/dL (7-17); Calcium 9.8 mg/dL (8.4-10.2); Carbon Dioxide 24 mmol/L (22-32); Chloride 104 mmol/L (98-107); Cholesterol 242 mg/dL (140-199); Estimated Glomerular Filt Rate > 60.0 mL/min (>60); Globulin 2.7 g/dL (1.7-4.1); Glucose 94 mg/dL (70-100); HDL Cholesterol 72 mg/dL (40-60); LDL Cholesterol Calculated 146 mg/dL (<100); Potassium 4.7 mmol/L (3.4-5.1); Sodium 137 mmol/L (137-145); Total Protein 7.1 g/dL (6.3-8.2); Triglycerides 120 mg/dL (35-150)
[2021-02-22 11:30] LABS: HEMOLYSIS < 15 (0-50)
[2021-02-22 11:39] LABS: Vitamin D 25 Hydroxy (D3) 37.8 ng/mL (30.0-100.0)
[2021-02-22 17:09] LABS: Hemoglobin A1C% w Est Avg Glu 5.1 % (4.0-6.0)
[2021-02-22 17:58] LABS: Vitamin B12 358 pg/mL (239-931)
[2021-02-23 08:08] LABS: Calcium 9.9 mg/dL (8.7-10.2); Parathyroid Hormone, Intact 33 pg/mL (15-65)
== END ==
PROVIDERS: PCP Registered Nurse Diabetes Educator; Referring Provider Psychiatry & Neurology Psychiatry; Visit Provider Psychiatry & Neurology Psychiatry
DX: E88.2 Lipomatosis, not elsewhere classified (principal); Z98.84 Bariatric surgery status
CPT/HCPCS: 36415; 80053; 80061; 82306; 82310; 82607; 83036; 83970

== ENCOUNTER → 2021-07-19 08:56 | Outpatient (CLI) | payer MEDICARE, BC, SELFPAY ==
--- NOTE | 2021-07-19 08:59 | DI.RAD.S_ITS ---
PROCEDURE: XR HAND RT MIN 3V INDICATIONS: Bilateral hand pain and stiffness in morning TECHNIQUE: 3 views of the hand(s) acquired. COMPARISON: [facility], , HAND 3V LEFT, 07/21/2017, 9:48. FINDINGS: Bones: No fractures or dislocations. No appreciable erosions. Carpal bones are normally aligned. No suspicious bony lesions. Soft tissues: No suspicious soft tissue calcifications. IMPRESSION: No significant abnormality. Dictated by: Jasvir Singleton M.D. on 07/19/2021 at 11:10 Approved by: Jasvir Singleton M.D. on 07/19/2021 at 11:11
--- NOTE | 2021-07-19 08:59 | DI.RAD.S_ITS ---
PROCEDURE: XR HAND LT MIN 3V INDICATIONS: Bilateral hand pain and stiffness in morning TECHNIQUE: 3 views of the hand(s) acquired. COMPARISON: [facility], , HAND 3V LEFT, 07/21/2017, 9:48. FINDINGS: Bones: No fractures or dislocations. No appreciable erosions. Carpal bones are normally aligned. No suspicious bony lesions. Soft tissues: No suspicious soft tissue calcifications. IMPRESSION: No significant abnormality. Dictated by: Jasvir Singleton M.D. on 07/19/2021 at 11:11 Approved by: Jasvir Singleton M.D. on 07/19/2021 at 11:13
[2021-07-19 09:35] LABS: Erythrocyte Sedimentation Rate 10 MM/HR (0-20)
[2021-07-19 09:49] LABS: C-Reactive Protein Quant 0.8 mg/dL (<1.0)
[2021-07-19 09:54] LABS: Rheumatoid Factor < 8.6 IU/mL (<12.0)
[2021-07-21 17:37] LABS: ANA Screen, IFA Positive (.)
[2021-07-23 21:13] LABS: CCP Antibodies IgG/IgA 5 units (0-19)
== END ==
PROVIDERS: PCP Registered Nurse Diabetes Educator; Referring Provider Family Medicine; Visit Provider Family Medicine
DX: M79.641 Pain in right hand (principal); M79.642 Pain in left hand; M79.89 Other specified soft tissue disorders; Q79.62 Hypermobile Ehlers-Danlos syndrome
CPT/HCPCS: 36415; 73130; 85651; 86038; 86140; 86200; 86430

== ENCOUNTER → 2021-11-16 16:36 | Outpatient (CLI) | payer MEDICARE, BC, SELFPAY ==
--- NOTE | 2021-11-16 16:42 | DI.MRI.S_ITS ---
PROCEDURE: MR ELBOW RT WO/W CON INDICATIONS: RIGHT ELBOW MASS TECHNIQUE: Noncontrast coronal proton density fast spin echo and T2 fast spin echo with fat saturation, coronal T1 spin echo with fat saturation, axial and sagittal T1 spin echo and T2 fast spin echo with fat saturation through the elbow. Post-contrast coronal, axial, and sagittal T1 spin echo with fat saturation through the elbow. COMPARISON: None. FINDINGS: Image quality: Excellent. Lateral structures: The lateral ulnar collateral ligament and radial collateral ligament both appear intact. The overlying common extensor tendon also appears normal. Medial structures: The ulnar collateral ligament appears intact. The overlying common flexor tendon appears normal. The ulnar nerve appears normal in size and signal within the cubital tunnel. Anterior structures: Surface skin marker is placed over antral medial aspect of distal upper arm above the level of humeral epicondyles. No discrete soft tissue mass is seen at the site of the marker. No abnormal soft tissue enhancement is noted. The biceps and brachialis tendons both appear intact as they insert onto the proximal radius and ulna, respectively. No bicipitoradial bursal fluid. The median and radial neurovascular bundles appear normal; no focal muscle atrophy to suggest nerve impingement. Posterior structures: The conjoint triceps tendon from the long and lateral heads appears intact. The medial head of the triceps tendon also appears normal, with direct muscle insertion onto the olecranon. No olecranon bursal fluid. Bone and cartilage: No suspicious osseous enhancement. No bone marrow contusions or fractures. No osteochondral injuries. IMPRESSION: 1. No enhancing soft tissue mass or fluid collection is seen. No discrete well encapsulated lipoma is identified. Finding could still represent unencapsulated lipoma versus normal subcutaneous fat. 2. No abnormal intraosseous enhancement. No marrow signal abnormality. No fracture or dislocation. No joint effusion. 3. Elbow tendons and ligaments are grossly intact. No evidence of internal derangement. Dictated by: Maged Quiroz M.D. on 11/19/2021 at 9:25 Approved by: Maged Quiroz M.D. on 11/19/2021 at 11:45
== END ==
PROVIDERS: PCP Registered Nurse Diabetes Educator; Referring Provider Orthopaedic Surgery; Visit Provider Orthopaedic Surgery
DX: R22.31 Localized swelling, mass and lump, right upper limb (principal)
CPT/HCPCS: 73223; A9579

== ENCOUNTER 2022-06-11 11:53 | Emergency (ER) | payer MEDICARE, BC, SELFPAY ==
--- NOTE | 2022-06-11 11:58 | DI.RAD.S_ITS ---
PROCEDURE: XR CHEST 1V INDICATIONS: chest pain TECHNIQUE: One view of the chest was acquired. COMPARISON: [facility], , CHEST 2 VIEW, 06/21/2016, 17:58. FINDINGS: Surgical changes and devices: Fusion hardware is partially visualized in lower cervical spine. Lungs and pleura: Lungs are clear. No pleural effusions or pneumothorax. Mediastinum: Mediastinal contours appear normal. Heart size is normal. Bones and chest wall: No suspicious bony lesions. Overlying soft tissues appear unremarkable. IMPRESSION: No acute cardiopulmonary pathology. Dictated by: Maged Quiroz M.D. on 06/11/2022 at 13:58 Approved by: Maged Quiroz M.D. on 06/11/2022 at 13:58
[2022-06-11 12:00] VITALS: BP 112/74; PULSE 91; RESP 16; TEMP 36.6; O2SAT 97; BMI 32.1
[2022-06-11 12:10] LABS: Add Manual Diff / Slide Review NO; Basophils Absolute Auto 0 /uL (0-100); Basophils Percent Auto 0.7 % (0-2); Eosinophils Absolute Auto 500 /uL (0-450); Eosinophils Percent Auto 8.2 % (2-4); Hematocrit 41.5 % (36-46); Hemoglobin 14.1 g/dL (12.0-16.0); Lymphocytes Absolute Auto 1500 /uL (1100-4500); Lymphocytes Percent Auto 25.6 % (25-40); Mean Corpuscular HGB Conc 34.1 % (30-36); Monocytes Absolute Auto 500 /uL (0-900); Monocytes Percent Auto 8.2 % (3-14); Neutrophils Absolute Auto 3300 /uL (1500-7000); Neutrophils Percent Auto 57.3 % (50-75); Platelet Count 246 X10^3/uL (150-400); Red Blood Cell Count 4.55 X10^6/uL (4.0-5.2); Red Cell Distribution Width 13.9 % (11.6-14.8); White Blood Cell Count 5.8 X10^3/uL (4.5-11.0)
[2022-06-11 12:22] LABS: Alanine Aminotransferase 23 IU/L (<35); Albumin 4.4 g/dL (3.5-5.0); Albumin Globulin Ratio 1.4 (1.0-2.8); Alkaline Phosphatase 96 U/L (38-126); Aspartate Aminotransferase 23 IU/L (14-36); BUN Creatinine Ratio 13.5 (6-22); Bilirubin Total 0.4 mg/dL (0.2-1.3); Blood Urea Nitrogen 12 mg/dL (7-17); Calcium 9.4 mg/dL (8.4-10.2); Carbon Dioxide 28 mmol/L (22-32); Chloride 106 mmol/L (98-107); Creatine Kinase 67 U/L (30-135); Estimated Glomerular Filt Rate > 60 mL/min (>60); Globulin 3.1 g/dL (1.7-4.1); Glucose 95 mg/dL (70-100); HEMOLYSIS < 15 (0-50); Lipase 83 U/L (23-300); Magnesium 1.9 mg/dL (1.6-2.3); Potassium 4.1 mmol/L (3.4-5.1); Sodium 141 mmol/L (137-145); Total Protein 7.5 g/dL (6.3-8.2)
[2022-06-11 12:32] LABS: Troponin I < 0.012 ng/mL (0.01-0.034)
[2022-06-11 12:46] VITALS: BP 86/60; PULSE 67; RESP 11; O2SAT 97
[2022-06-11 13:00] VITALS: BP 94/57; PULSE 65; RESP 15; O2SAT 96
[2022-06-11] MEDS: IBUPROFEN 400 MG TABLET PO (13:06)
[2022-06-11 13:30] VITALS: BP 98/58; PULSE 66; RESP 26; O2SAT 96
[2022-06-11 13:34] LABS: Thyroid Stimulating Hormone 1.94 uIU/mL (0.47-4.68)
--- NOTE | 2022-06-11 13:37 | ED_ITS ---
HPI - Chest Pain <CECILIA Lou - Last Filed: 06/11/22 19:42> General Chief Complaint: Chest Pain Stated Complaint: CHEST PAIN Time Seen by Provider: 06/11/22 12:07 History of Present Illness HPI narrative: This is a 52-year-old female who is currently under treatment for her autism, depression, anxiety, PTSD, fibromyalgia, chronic pain syndrome, ADHD and Kim- Danlos syndrome who presents to the emergency department today for symptoms of anxiety, panic, chest and throat tightening which occurred out of no where after she got off the phone with her brother. Patient is on multiple medications including naloxone, hydrocodone, lamotrigine, meloxicam, methocarbamol, prazosin and states she is currently try titrating down on her clonazepam from 0.5 mg 2.25 mg and this started 2 weeks ago as well as starting on naltrexone 2 weeks [address] Patient sees Dr. Dickson from Psychiatry and Nba BROOKS. She is undergoing counseling, denies any symptoms of suicidality, or intent to harm self or others. Patient states that she was worried about a cardiac event and now feels like this was a panic attack. She still feels anxious and tightness in her chest but denies any radiation of this pain, denies any nausea, vomiting, diaphoresis or other symptom. Related Data Home Medications Medication Instructions Recorded Confirmed multivitamin (Multiple Vitamins 1 tab PO DAILY 01/13/19 05/17/22 tablet) ferrous 50mg PO 08/29/20 05/17/22 Lactobac 51-Bifidobac cap PO 05/17/22 05/17/22 3-L.lactis-S.thermophilus 4 billion cell capsule (Daily Probiotic (10 Strains)) biocidin drops PO DAILY 05/17/22 hydrocodone 5 mg-acetaminophen 325 1 tab PO Q6H PRN pain >705/17/22 05/17/22 mg tablet low dose naltrexone 0.1 mg sublingual DAILY 05/17/22 05/17/22 methocarbamol 500 mg tablet 250 mg PO TID PRN pain 05/17/22 05/17/22 Previous Rx's Medication Instructions Recorded meloxicam 7.5 mg tablet 7.5 mg PO DAILY #90 tabs 07/19/21 phentermine 8 mg tablet (Lomaira) 8 mg PO DAILY #90 tabs 11/13/21 clonazepam 0.5 mg tablet 0.25 mg PO .COMPLEX PRN severe 05/17/22 anxiety/insomnia #30 tabs lamotrigine 100 mg tablet,extended 100 mg PO DAILY 90 days #90 tabs 05/17/22 release 24 hr prazosin 1 mg capsule See Rx Instructions .Route 05/17/22 .COMPLEX #100 caps Allergies Allergy/AdvReac Type Severity Reaction Status Date / Time articaine [ARTICAINE] Allergy Severe FACIAL Verified 10/03/21 15:24 RASH, NUMBNESS nickel [NICKEL] Allergy Severe ITCH Verified 10/03/21 15:24 Penicillins [PENICILLINS] Allergy Severe ITCHING Verified 10/03/21 15:24 Sulfa (Sulfonamide Allergy Severe ITCHING Verified 10/03/21 15:24 Antibiotics) [SULFA (SULFONAMIDE ANTIBIOTICS)] tetracycline [TETRACYCLINE] Allergy Severe ITCHING Verified 10/03/21 15:24 corn Allergy Intermediate Verified 10/03/21 15:24 gabapentin Allergy suicidal Verified 10/03/21 15:24 ideation buspirone [From BUSPAR] AdvReac Severe SEVERE Verified 10/03/21 15:24 NECK PAIN AND DIZZINESS duloxetine [From CYMBALTA] AdvReac Severe BLEEDING Verified 10/03/21 15:24 UNDER MY SKIN ondansetron [ONDANSETRON] AdvReac Severe SERATONIN Verified 10/03/21 15:24 SYNDROME erythromycin base AdvReac Intermediate GI UPSET Verified 10/03/21 15:24 [From ERYTHROCIN] naltrexone [NALTREXONE] AdvReac Intermediate (LOW DOSE) Verified 10/03/21 15:24 insomnia, agitation IMMUNIZATIONS Allergy Severe (ALL) RASH Uncoded 10/03/21 15:24 ALL OVER UPPER TORSO VICRYL SUTURES AdvReac Severe BODY DOES Uncoded 10/03/21 15:24 NOT ABSORB Review of Systems <CECILIA Lou - Last Filed: 06/11/22 19:42> Review of Systems Narrative: Review of systems is negative for acute abnormalities unless otherwise noted in HPI Patient History <CECILIA Lou - Last Filed: 06/11/22 19:42> Medical History Abnormal Pap smear of cervix (~1989) Anxiety Bilateral hand pain Carpal tunnel syndrome Cervical spine disease (~2017) Chicken pox (~1972) Chlamydia (~1986) Chronic back pain (~2015) Cubital tunnel syndrome (~2017) Depression (07/17/17) Eczema Endometriosis Fibromyalgia (~2004) Flu-like symptoms Foot pain (~2014) GERD (gastroesophageal reflux disease) (~2011) Hand swelling Headache Heavy menstrual period Hemorrhoid (~2002) Hypermobile Kim-Danlos syndrome Insomnia Irregular menstrual cycle Irritable bowel syndrome (~1986) Kidney stones Lipedema (~2016) Liver disease (~2015) Ovarian cyst (~1982) Painful menstrual periods PCOS (polycystic ovarian syndrome) Peripheral neuropathy (~2013) PTSD (post-traumatic stress disorder) (~2012) Rosacea Shoulder pain (~2017) Substance abuse Surgical History Anesthesia History of bilateral salpingo-oophorectomy (BSO) (09/30/14) History of colonoscopy (~2018) History of esophagogastroduodenoscopy (EGD) (~2018) History of sleeve gastrectomy (~2005) History of spinal fusion (~01/2018) History of umbilical hernia repair (~2015) Lipoma Status post delivery Status post laparoscopic cholecystectomy (~2012) Status post laparoscopic supracervical hysterectomy (~2013) Status post laparoscopy (05/13/14) Status post laparoscopy (09/18/15) Family History Father Age: 81 Hyperlipidemia Mother Parkinson disease Lewy body dementia with behavioral disturbance Grandfather CLL (chronic lymphocytic leukemia) Grandmother Cancer Grandfather Diabetes mellitus History of heart disease Hypertension Social History Smoking Status: Current every day smoker Smoking Status: Current every day smoker Exam <CECILIA Lou - Last Filed: 06/11/22 19:42> Narrative Exam Narrative: Reviewed vitals signs and nursing notes. General: cooperative, comfortable, in no acute distress, well groomed HEENT: symmetrical facial expressions, moist mucous membranes Cardiovascular: regular rate and rhythm, S1-S2 without murmur or additional sounds no peripheral edema, warm extremities Respiratory: normal effort, able to speak in complete sentences, without wheezing, stridor, or abnormal breath sounds. No retractions or tachypnea. GI: abdomen soft, nontender to palpation, nondistended, without masses, rebound tenderness or exquisite tenderness with exam. MSK: moves all extremities, neurovascularly intact, no weakness, normal tone Skin: brisk capillary refill, without pallor or erythema Neuro: normal speech and cognition, A&O x3, ambulatory, clear speech Psych: mental status is grossly normal, congruent mood, normal affect, pleasant and cooperative Initial Vital Signs Initial Vital Signs: Vital Signs Temperature 97.8 F 06/11/22 12:00 Pulse Rate 91 H 06/11/22 12:00 Respiratory Rate 16 06/11/22 12:00 Blood Pressure 112/74 06/11/22 12:00 Pulse Oximetry 97 06/11/22 12:00 Oxygen Delivery Method 06/11/22 12:00 <Maggie Huerta DO - Last Filed: 06/15/22 08:37> Initial Vital Signs Initial Vital Signs: Vital Signs Temperature 97.8 F 06/11/22 12:00 Pulse Rate 91 H 06/11/22 12:00 Respiratory Rate 16 06/11/22 12:00 Blood Pressure 112/74 06/11/22 12:00 Pulse Oximetry 97 06/11/22 12:00 Oxygen Delivery Method 06/11/22 12:00 Course <CECILIA Lou - Last Filed: 06/11/22 19:42> Orders Ordered: Discontinued Medications Hydrocodone Bitart/Acetaminophen (Hydrocodone/Acet 5/325 Tablet) 1 tab PO NOW ONE Stop: 06/11/22 12:43 Last Admin: 06/11/22 13:00 Dose: Not Given Documented By: BARB Clonazepam (Clonazepam 0.5 Mg Tablet) 0.5 mg PO NOW ONE Stop: 06/11/22 12:42 Last Admin: 06/11/22 13:00 Dose: Not Given Documented By: BARB Ibuprofen (Ibuprofen 400 Mg Tablet) 400 mg PO NOW ONE Stop: 06/11/22 13:01 Last Admin: 06/11/22 13:06 Dose: 400 mg Documented By: BARB Vital Signs Vital signs: Vital Signs - 8 hr 06/11/22 12:00 06/11/22 12:46 06/11/22 12:46 Temperature 97.8 F Pulse Rate 91 H 67 Respiratory Rate 16 11 L Blood Pressure 112/74 86/60 L Pulse Oximetry 97 97 Oxygen Delivery Method Room Air 06/11/22 13:00 06/11/22 13:00 06/11/22 13:30 Temperature Pulse Rate 65 Respiratory Rate 15 Blood Pressure 94/57 L 98/58 L Pulse Oximetry 96 Oxygen Delivery Method 06/11/22 13:30 Temperature Pulse Rate 66 Respiratory Rate 26 H Blood Pressure Pulse Oximetry 96 Oxygen Delivery Method <Maggie Huerta DO - Last Filed: 06/15/22 08:37> Orders Ordered: Discontinued Medications Hydrocodone Bitart/Acetaminophen (Hydrocodone/Acet 5/325 Tablet) 1 tab PO NOW ONE Stop: 06/11/22 12:43 Last Admin: 06/11/22 13:00 Dose: Not Given Documented By: BARB Clonazepam (Clonazepam 0.5 Mg Tablet) 0.5 mg PO NOW ONE Stop: 06/11/22 12:42 Last Admin: 06/11/22 13:00 Dose: Not Given Documented By: BARB Ibuprofen (Ibuprofen 400 Mg Tablet) 400 mg PO NOW ONE Stop: 06/11/22 13:01 Last Admin: 06/11/22 13:06 Dose: 400 mg Documented By: BARB Vital Signs Vital signs: Vital Signs - 8 hr 06/11/22 12:00 06/11/22 12:46 06/11/22 12:46 Temperature 97.8 F Pulse Rate 91 H 67 Respiratory Rate 16 11 L Blood Pressure 112/74 86/60 L Pulse Oximetry 97 97 Oxygen Delivery Method Room Air 06/11/22 13:00 06/11/22 13:00 06/11/22 13:30 Temperature Pulse Rate 65 Respiratory Rate 15 Blood Pressure 94/57 L 98/58 L Pulse Oximetry 96 Oxygen Delivery Method 06/11/22 13:30 Temperature Pulse Rate 66 Respiratory Rate 26 H Blood Pressure Pulse Oximetry 96 Oxygen Delivery Method MDM - Chest Pain <CECILIA Lou - Last Filed: 06/11/22 19:42> Lab Data Result diagrams: 06/11/22 12:01 06/11/22 12:01 Labs: Lab Results 06/11/22 06/11/22 06/11/22 Range/Units 12:01 12:01 12:01 WBC 5.8 (4.5-11.0) X10^3/uL RBC 4.55 (4.0-5.2) X10^6/uL Hgb 14.1 (12.0-16.0) g/dL Hct 41.5 (36-46) % MCV 91.0 (80-100) fL MCH 31.0 (26-34) PG MCHC 34.1 (30-36) % RDW 13.9 (11.6-14.8) % Plt Count 246 (150-400) X10^3/uL Neut % (Auto) 57.3 (50-75) % Lymph % (Auto) 25.6 (25-40) % [place] % (Auto) 8.2 (3-14) % Eos % (Auto) 8.2 H (2-4) % Baso % (Auto) 0.7 (0-2) % Neut # (Auto) 3300 (4690-2230) /uL Lymph # (Auto) 1500 (8379-2334) /uL [place] # (Auto) 500 (0-900) /uL Eos # (Auto) 500 H (0-450) /uL Baso # (Auto) 0 (0-100) /uL Sodium 141 (137-145) mmol/L Potassium 4.1 (3.4-5.1) mmol/L Chloride 106 (98-107) mmol/L Carbon Dioxide 28 (22-32) mmol/L BUN 12 (7-17) mg/dL Creatinine 0.89 (0.52-1.04) mg/dL Estimated GFR > 60 (>60) mL/min BUN/Creatinine Ratio 13.5 (6-22) Glucose 95 (70-100) mg/dL Calcium 9.4 (8.4-10.2) mg/dL Magnesium 1.9 (1.6-2.3) mg/dL Total Bilirubin 0.4 (0.2-1.3) mg/dL AST 23 (14-36) IU/L ALT 23 (<35) IU/L Alkaline Phosphatase 96 (38-126) U/L Total Creatine Kinase 67 (30-135) U/L CK-MB (CK-2) TNP CK-MB (CK-2) Rel Index TNP Troponin I < 0.012 (0.01-0.034) ng/mL Total Protein 7.5 (6.3-8.2) g/dL Albumin 4.4 (3.5-5.0) g/dL Globulin 3.1 (1.7-4.1) g/dL Albumin/Globulin Ratio 1.4 (1.0-2.8) Lipase 83 (23-300) U/L TSH 1.94 (0.47-4.68) uIU/mL ABG Data Interpretation: PROCEDURE:? XR CHEST 1V ? INDICATIONS:? chest pain ? TECHNIQUE:? One view of the chest was acquired.? ? COMPARISON:? [facility], , CHEST 2 VIEW, 06/21/2016, 17:58. ? FINDINGS:? ? Surgical changes and devices:? Fusion hardware is partially visualized in lower cervical spine. ? Lungs and pleura:? Lungs are clear.? No pleural effusions or pneumothorax.? ? Mediastinum:? Mediastinal contours appear normal.? Heart size is normal.? ? Bones and chest wall:? No suspicious bony lesions.? Overlying soft tissues appear unremarkable.? ? IMPRESSION:? No acute cardiopulmonary pathology. ? ? Dictated by: Maged Quiroz M.D. on 06/11/2022 at 13:58 ? ? Approved by: Maged Quiroz M.D. on 06/11/2022 at 13:58 ? ECG Data Interpretation: EKG independently reviewed by Dr. Huerta at 12:05 with regular axis and intervals. No STEMI, ST segment changes, arrhythmia, or acute ischemic changes. MDM Narrative Medical decision making narrative: 52-year-old female with history mood disorder and is on multiple medications carefully titrated by her psychiatrist Dr. Soha Dickson and her primary care provider Nba BROOKS. She presents today with symptoms consistent with a panic attack and states that the benzodiazepines we treated her with helped with her pain and symptoms. Patient is currently undergoing medication adjustment of reduction of her clonazepam dosing as well as recently starting on naltrexone 2 weeks ago. Patient had an episode of panic with epigastric and throat tightness which improved after awhile. Patient also takes phentermine, methocarbamol, hydrocodone, meloxicam, prazosin for her chronic pain and fibromyalgia. Patient's workup today does not show any evidence of acute cardiopulmonary abnormality. Her lab work overall is reassuring, patient does not have any leukocytosis, no electrolyte abnormality, creatinine is stable, no elevation in her liver enzymes, troponin is 0.012, lipase 83, TSH 1.94. EKG shows normal sinus rhythm without any ectopy or arrhythmia. Chest x-ray without any acute cardiopulmonary abnormality. EKG without ST changes or arrhythmia. No evidence of this is cardiac related chest pain. Encourage patient to follow- up with her prescriber and to continue therapy and understands to continue practicing mindfulness, meditation, deep breathing exercises in symptoms of panic. Encouraged her to identify her anxiety symptoms and to start doing her exercises to improve her panic symptoms. Patient denies needing any additional medications. She understands to follow-up with her outpatient providers as needed. Patient is appropriate and amenable to discharge home. Vital signs are stable on repeat examination is unremarkable. Patient has been informed of results. Patient has been given strict return to ER precautions for any new or worsening symptoms. Patient understands to follow up closely with outpatient providers as instructed. Patient understands plan and agrees to discharge home. All questions and concerns answered at this time. <Maggie Huerta, - Last Filed: 06/15/22 08:37> Lab Data Labs: Lab Results 06/11/22 06/11/22 06/11/22 Range/Units 12:01 12:01 12:01 WBC 5.8 (4.5-11.0) X10^3/uL RBC 4.55 (4.0-5.2) X10^6/uL Hgb 14.1 (12.0-16.0) g/dL Hct 41.5 (36-46) % MCV 91.0 (80-100) fL MCH 31.0 (26-34) PG MCHC 34.1 (30-36) % RDW 13.9 (11.6-14.8) % Plt Count 246 (150-400) X10^3/uL Neut % (Auto) 57.3 (50-75) % Lymph % (Auto) 25.6 (25-40) % [place] % (Auto) 8.2 (3-14) % Eos % (Auto) 8.2 H (2-4) % Baso % (Auto) 0.7 (0-2) % Neut # (Auto) 3300 (4307-8195) /uL Lymph # (Auto) 1500 (7179-5031) /uL [place] # (Auto) 500 (0-900) /uL Eos # (Auto) 500 H (0-450) /uL Baso # (Auto) 0 (0-100) /uL Sodium 141 (137-145) mmol/L Potassium 4.1 (3.4-5.1) mmol/L Chloride 106 (98-107) mmol/L Carbon Dioxide 28 (22-32) mmol/L BUN 12 (7-17) mg/dL Creatinine 0.89 (0.52-1.04) mg/dL Estimated GFR > 60 (>60) mL/min BUN/Creatinine Ratio 13.5 (6-22) Glucose 95 (70-100) mg/dL Calcium 9.4 (8.4-10.2) mg/dL Magnesium 1.9 (1.6-2.3) mg/dL Total Bilirubin 0.4 (0.2-1.3) mg/dL AST 23 (14-36) IU/L ALT 23 (<35) IU/L Alkaline Phosphatase 96 (38-126) U/L Total Creatine Kinase 67 (30-135) U/L CK-MB (CK-2) TNP CK-MB (CK-2) Rel Index TNP Troponin I < 0.012 (0.01-0.034) ng/mL Total Protein 7.5 (6.3-8.2) g/dL Albumin 4.4 (3.5-5.0) g/dL Globulin 3.1 (1.7-4.1) g/dL Albumin/Globulin Ratio 1.4 (1.0-2.8) Lipase 83 (23-300) U/L TSH 1.94 (0.47-4.68) uIU/mL ECG Data Attestation: I personally reviewed and interpreted this ECG as follows: Prior ECG tracings: available for review Interpretation: EKG independently reviewed by Dr. Huerta at 12:05 with regular axis and intervals. No STEMI, ST segment changes, arrhythmia, or acute ischemic changes. Bradley: Sinus rhythm rate 83 TX 130 QRS is 74 and QTC 430. No acute ST elevation or depression appreciated. Patient has prior from 2016 in 2011 no dynamic or ischemic changes. Discharge Plan Departure Patient Disposition: Home Clinical Impression: Panic attack, Chronic post-traumatic stress disorder (PTSD), Fibromyalgia, PTSD (post-traumatic stress disorder) Activity Restrictions/Additional Instructions: *You have been diagnosed with most likely a panic attack. Your cardiac workup and evaluation in the emergency department today is reassuring that you do not any acute cardiac events and I believe your medication regime is carefully crafted to offer you the maximum benefit. For symptoms of anxiety or panic that creep up out of no where without known trigger, 1st identify it, decide how you will react to it and start with your deep breathing exercises, meditation and m indfulness to help you reduce the progression of that panic attack. Take your clonazepam as needed for that sensation, and take your pain medications as needed as well. Because you are starting this new medication and titrating off of another 1, you are likely having triggers from your brain that you have a problem that needs treated. If you can identify it early, sometimes you can prevent that pain from occurring. Follow-up with Dr. Dickson and with Nba Vázquez, I wish you the best. *What to do: *Please continue to take your regular medications as directed. [ ] New medication prescriptions sent to your pharmacy: [ ] [ ] New medication written as a paper prescription [ x] No new medications given *Please follow up with your primary care provider in 2-3 days, call for an appointment. Let them know you were seen in the Emergency Department and that we asked that you be seen for follow-up. We will electronically transmit a record of today's note if your PCP is in our system *If you do not have a primary care provider please contact [phone] to establish care with one of the [facility] primary care providers. *Return to Emergency Department if you should have any new, worsening, or concerning symptoms, such as [fever greater than 101F, chills, worsening pain, persistent vomiting or other bothersome symptoms]. Prescriptions: No Action ferrous 50mg PO multivitamin [Multiple Vitamins] tablet 1 tab PO DAILY Lomaira 8 mg tablet 8 mg PO DAILY Qty: 90 0RF Rx Instructions: must administer 30 minutes before meals/food hydrocodone-acetaminophen 5-325 mg tablet 1 tab PO Q6H PRN (Reason: pain >7/10) Label Comments: TAKE ONE TABLET BY MOUTH EVERY 6 HOURS NEEDED . MAX 2 TABS DAILY methocarbamol 500 mg tablet 250 mg PO TID PRN (Reason: pain) Daily Probiotic (10 Strains) 4 billion cell capsule PO biocidin drops PO DAILY low dose naltrexone 0.1 mg sublingual DAILY Label Comments: compounded, prescribed by CECILIA Vogel clonazepam 0.5 mg tablet 0.25 mg PO .COMPLEX PRN (Reason: severe anxiety/insomnia) Qty: 30 0RF Rx Instructions: 0.25 mg orally QHS for 2-4 weeks then stop. Continue 0.25mg daily as needed dose PRN; lamotrigine 100 mg tablet extended release 24hr 100 mg PO DAILY 90 Days Qty: 90 1RF prazosin 1 mg capsule See Rx Instructions .ROUTE .COMPLEX Qty: 100 2RF Dose Instruction: take 1 capsule by mouth at bedtime *OKAY TO INCREASE TO 2 capsules by mouth a t bedtime if needed for insomnia Rx Instructions: take 1 capsule by mouth at bedtime *OKAY TO INCREASE TO 2 capsules by mouth at bedtime if needed for insomnia meloxicam 7.5 mg tablet 7.5 mg PO DAILY Qty: 90 0RF Referrals: Nba Vázquez ARNP [Primary Care Provider] - Soha Dickson DO [Physician] - Visit Report Forms: Patient Portal/API <Maggie Huerta DO - Last Filed: 06/15/22 08:37> Cosign ED Attending Darioature Attestation: I was immediately available in the department for consultation. Documentation has been reviewed.
== END 2022-06-11 13:54 | disposition home or self-care (01) ==
PROVIDERS: Emergency Medicine; Emergency Provider Nurse Practitioner Critical Care Medicine; PCP Registered Nurse Diabetes Educator
DX: F41.0 Panic disorder [episodic paroxysmal anxiety] (principal); F43.12 Post-traumatic stress disorder, chronic; M79.7 Fibromyalgia
CPT/HCPCS: 36415; 71045; 80053; 82550; 83690; 83735; 84443; 84484; 85025; 93005; 99284

== ENCOUNTER → 2023-01-15 07:49 | Outpatient (CLI) | payer MEDICARE, BC, SELFPAY ==
--- NOTE | 2023-01-15 07:51 | DI.US.S_ITS ---
PROCEDURE: US ABDOMEN LIMITED INDICATIONS: UMBILICAL PAIN; HX HERNIA TECHNIQUE: Real-time focused scanning was performed of the abdomen, with image documentation. COMPARISON: [facility], , US ABDOMEN COMPLETE, 09/27/2019, 13:39. FINDINGS: No abdominal hernia is seen in the region of the umbilicus. No significant change with Valsalva maneuver. IMPRESSION: No periumbilical hernia is seen sonographically. Approved by: Lg Shin M.D. on 01/15/2023 at 11:13
== END ==
PROVIDERS: PCP Family Medicine; Referring Provider Family Medicine; Visit Provider Family Medicine
DX: K42.9 Umbilical hernia without obstruction or gangrene (principal)
CPT/HCPCS: 76705